=== PATIENT | male | born 1965 | race Caucasian/White ===

== ENCOUNTER 2023-10-09 18:40 | Inpatient (IN) ==
--- NOTE | 2023-10-09 19:03 | Emergency Department Note ---
Impression & Plan Acute UTI ADMIT ED Provider Note HPI: History obtained from patient. The patient is a 57-year-old gentleman who presents emergency department with a chief complaint of lower back pain, fever, and continued urinary frequency. Patient states he was diagnosed with a urinary tract infection on Saturday, he states he was placed on Macrobid without much improvement in his symptoms. Patient states he has had fevers at home over the past 3 days and also continues with some urinary frequency and mild dysuria. Patient denies any nausea or vomiting, states he has a mild headache. Patient denies any cough. Patient states he does have some pain in his lower back bilaterally. On arrival here to the ED the patient is mildly tachycardic, he is afebrile on arrival and saturating well on room air. ROS: - Per HPI Differential Diagnosis: Urinary tract infection, sepsis, adverse reaction to medication, viral upper respiratory infection to include COVID-19, influenza A, pneumonia, amongst other potential pathologies. *Outpatient medications and allergy history reviewed. 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 Lab work shows a leukocytosis of 13.12, platelet count is normal, hemoglobin is normal, CMP shows hypokalemia 2.9 which was ordered for oral repletion. There is no evidence of acute kidney injury, lactic acid is within normal limits, procalcitonin is low. Urinalysis does show evidence of infection, 1+ ketones, urine nitrite is positive and urine leukocyte esterase is 2+. There is significant pyuria. Viral panel testing is negative. I do not see any focal infiltrate on chest x-ray. CT imaging of the abdomen pelvis was obtained with IV contrast as the patient also complained of some lower back pain with his intermittent fevers and evidence of urinary tract infection. CT imaging shows some evidence of locules of air within the urinary bladder consistent with possibly cystitis with possible gas-forming infection. Patient denies having any recent catheterizations or instrumentation done. Given the above findings, I do feel the patient would benefit from admission for administration of IV antibiotics for urinary tract infection. His temperature did spike to 37.9 Celsius here in the ED. I do of concern for possible systemic infection and they do think the patient would benefit from admission to follow- up on urine culture and blood culture. I discussed the patient's presentation with the on-call hospitalist, Dr. Howe, and the patient was placed for admission in stable condition. Consultants/Discussions held with other healthcare providers: -Hospitalist, Dr. Howe Disposition discussion held by myself with: -Patient and at bedside Diagnosis: 1. Urinary tract infection with cystitis, acute 2. Leukocytosis, acute 3. Hypokalemia, acute 4. Fever by history Disposition: Admission Devin Phelps DO Emergency Medicine Past Med/Surg History Problem List (Updated 10/09/23 @ 22:11 by Devin Phelps DO) Acute UTI (Acute) Medical History (Updated 10/09/23 @ 22:11 by Dvein Phelps DO) Chest pain Social History Smoking Status: Current every day smoker Tobacco Type: Smokeless Tobacco (Dip or Chew) Preferred Language: Bruneian Feels Safe at Home: Yes Allergies Allergies Allergy/AdvReac Type Severity Reaction Status Date / Time No Known Allergies Allergy Verified 10/09/23 21:05 Home Meds Home Medications Medication Instructions Recorded Confirmed cholecalciferol (vitamin D3) 50 2,000 unit PO QAM 12/12/18 10/09/23 mcg (2,000 unit) tablet (Vitamin D3) hydrochlorothiazide 25 mg tablet 25 mg PO DAILY 12/12/18 10/09/23 losartan 50 mg tablet 50 mg PO QAM 12/12/18 10/09/23 potassium chloride 20 mEq 20 meq PO QAM 12/12/18 10/09/23 tablet,extended release(part/cryst) acetaminophen 325 mg tablet 650 mg PO DIRECTED PRN 10/09/23 10/09/23 (Tylenol) PAIN/FEVER nitrofurantoin 100 mg PO BID 10/09/23 10/09/23 monohydrate/macrocrystals 100 mg capsule Previous Rx's Medication Instructions Recorded spirometers and accessories #1 ea 12/12/18 Results & Data (ED) Vital Signs Vital Signs - 24 hr 10/09/23 18:47 10/09/23 19:36 10/09/23 19:36 Temperature 37.1 C Temperature Source Temporal Artery Scan Pulse Rate 107 H 91 H Pulse Rate [Apical] Respiratory Rate 18 17 Blood Pressure 158/95 H Blood Pressure [Left Arm] Blood Pressure Mean 116 Blood Pressure Mean [Left Arm] Pulse Oximetry 94 94 Oxygen Delivery Method Room Air Room Air Room Air Sepsis New/Unexplained Change in Mental Status No Sepsis Action Taken by Nursing No Action Required 10/09/23 19:36 10/09/23 19:39 10/09/23 19:49 Temperature 37.9 C H Temperature Source Oral Pulse Rate 90 Pulse Rate [Apical] 91 H 86 Respiratory Rate 17 11 L Blood Pressure Blood Pressure [Left Arm] 141/93 H 144/90 H Blood Pressure Mean Blood Pressure Mean [Left Arm] 109 108 Pulse Oximetry 94 94 Oxygen Delivery Method Room Air Sepsis New/Unexplained Change in Mental Status Sepsis Action Taken by Nursing 10/09/23 20:45 10/09/23 21:45 10/09/23 22:00 Temperature Temperature Source Pulse Rate Pulse Rate [Apical] 83 81 80 Respiratory Rate 16 Blood Pressure Blood Pressure [Left Arm] 139/91 149/96 H 135/96 Blood Pressure Mean Blood Pressure Mean [Left Arm] 107 113 109 Pulse Oximetry 95 96 96 Oxygen Delivery Method Room Air Room Air Room Air Sepsis New/Unexplained Change in Mental Status Sepsis Action Taken by Nursing Laboratory Data 10/09/23 19:27 10/09/23 19:27 Lab Results 10/09/23 10/09/23 10/09/23 Range/Units 19:20 19:27 20:44 WBC 13.12 H (4.8-10.8) K/ul RBC 4.76 (4.70-6.10) M/uL Hgb 14.8 (14.0-18.0) g/dl Hct 40.8 L (42.0-52.0) % MCV 85.7 (80.0-100.0) fL MCH 31.1 (25.0-34.0) pg MCHC 36.3 H (32.0-36.0) g/dL RDW Std Deviation 41.1 (36.4-46.3) fL RDW Coeff of Janeth 13.0 (11.5-14.5) % Plt Count 257 (130-400) K/uL MPV 8.7 L (9.4-12.4) fL Immature Gran % (Auto) 0.2 % Neut % (Auto) 78.5 % Lymph % (Auto) 8.5 % [place] % (Auto) 10.3 % Eos % (Auto) 2.1 % Baso % (Auto) 0.4 % Neut # (Auto) 10.30 H (1.40-6.50) K/uL Lymph # (Auto) 1.12 L (1.20-3.40) K/uL [place] # (Auto) 1.35 H (0.11-0.59) K/uL Eos # (Auto) 0.27 (0.00-0.50) K/uL Baso # (Auto) 0.05 (0.00-0.20) K/uL Immature Gran # (Auto) 0.03 (0.01-0.20) K/uL PT 10.7 (9.0-12.0) Seconds INR 1.0 (0.9-1.1) Sodium 136 (136-145) mmol/L Potassium 2.9 L (3.5-5.1) mmol/L Chloride 98 (98-107) mmol/L Carbon Dioxide 28 (21-32) mmol/L Anion Gap 10 (3-11) BUN 15 (6-23) mg/dl Creatinine 1.13 (0.6-1.4) mg/dl Est Cr Clr Drug Dosing 86.6 ml/min Est GFR ( Amer) 82.0 ml/min Est GFR (Non-Af Amer) 70.8 ml/min BUN/Creatinine Ratio 13.3 (10-20) Glucose 123 H (70-99(Fasting)) mg/dl Lactate 1.2 (0.4-2.0) mmol/L Calcium 10.0 (8.6-10.3) mg/dl Magnesium 2.1 (1.7-2.4) mg/dl Total Bilirubin 1.0 (0.2-1.0) mg/dl Direct Bilirubin 0.2 (0-0.2) mg/dl AST 27 (13-39) U/L ALT 34 (7-52) U/L Alkaline Phosphatase 90 (34-104) U/L Total Protein 8.2 (6.0-8.3) gm/dl Albumin 4.5 (3.4-5.0) gm/dl Procalcitonin 0.25 (0-0.5) ng/ml Urine Color Dark Yellow Urine Appearance Turbid A (Clear) Urine pH 7.0 (4.5-7.5) Ur Specific [place] 1.035 H (1.000-1.030) Urine Protein 2+ H (Negative) Urine Glucose (UA) Negative (Negative) Urine Ketones 1+ H (Negative) Urine Blood Trace H (Negative) Urine Nitrite Positive A (Negative) Urine Bilirubin Negative (Negative) Urine Urobilinogen Negative (Negative) Ur Leukocyte Esterase 2+ H (Negative) Urine WBC (Auto) >50 H (0-5) /hpf Urine RBC (Auto) 0-2 (0-2) /hpf U Hyaline Cast (Auto) 3-5 H (0-2) /lpf U Epithel Cells (Auto) 0-2 (0-2) /hpf Urine Bacteria (Auto) 4+ H (None Seen) Urine Yeast Present A (None Prsent) Adenovirus (PCR) Not Detected (NotDetected) B. pertussis DNA (PCR) Not Detected (NotDetected) B.parapertussis DNA PCR Not Detected (NotDetected) C. pneumoniae DNA (PCR) Not Detected (NotDetected) Coronavirus OC43 (PCR) Not Detected (NotDetected) Coronavirus HKU1 (PCR) Not Detected (NotDetected) Coronavirus 229E (PCR) Not Detected (NotDetected) SARS-CoV-2 (PCR) Not Detected (NotDetected) Coronavirus NL63 (PCR) Not Detected (NotDetected) Human Metapneumovir PCR Not Detected (NotDetected) Influenza Type A (PCR) Not Detected (NotDetected) Influenza Type B (PCR) Not Detected (NotDetected) M. pneumoniae (PCR) Not Detected (NotDetected) Parainfluenza 1 (PCR) Not Detected (NotDetected) Parainfluenza 2 (PCR) Not Detected (NotDetected) Parainfluenza 3 (PCR) Not Detected (NotDetected) Parainfluenza 4 (PCR) Not Detected (NotDetected) RSV (PCR) Not Detected (NotDetected) Entero/Rhino (PCR) Not Detected (NotDetected) Administered Medications Discontinued Medications Sodium Chloride (Nss) 1,000 mls @ 999 mls/hr IV .Q1H1M ONE Stop: 10/09/23 21:22 Last Admin: 10/09/23 20:42 Dose: 999 mls/hr Documented By: AWILDA Ceftriaxone Sodium (Rocephin) 2,000 mg in 50 mls @ 100 mls/hr IV NOW STA Stop: 10/09/23 21:42 Last Admin: 10/09/23 21:42 Dose: 100 mls/hr Documented By: AWILDA Ioversol (Optiray 320 100ml) 92 ml IV ONCE ONE Stop: 10/09/23 21:29 Last Admin: 10/09/23 21:29 Dose: 92 ml Documented By: BERTHA Potassium Chloride (Potassium Chloride Pwd 20 Meq Pack) 40 meq PO NOW STA Stop: 10/09/23 20:44 Last Admin: 10/09/23 20:52 Dose: 40 meq Documented By: AWILDA Imaging Data Radiologist's Impression: Abdomen/Pelvis CT 10/09/23 19:01 Exam(s): CT ABDOMEN + PELVIS With Contrast IV Amt: 92 ml optiray 320 EXAM: CT Abdomen and Pelvis With Intravenous Contrast CLINICAL HISTORY: Reason for exam: back pain, fever, recent uti. TECHNIQUE: Axial computed tomography images of the abdomen and pelvis with intravenous contrast. CTDI is 26.86 mGy and DLP is 1404.4 mGy-cm. Automated exposure control was utilized for the study. A dose lowering technique was utilized adhering to the principles of ALARA. CONTRAST: Patient received 92 ml optiray 320 of IV contrast COMPARISON: 12/12/2018 FINDINGS: Lung bases: Unremarkable. No mass. No consolidation. ABDOMEN: Liver: Fatty infiltration of the liver. Gallbladder and bile ducts: Unremarkable. No calcified stones. No ductal dilation. Pancreas: Unremarkable. No mass. No ductal dilation. Spleen: Unremarkable. No splenomegaly. Adrenals: Unremarkable. No mass. Kidneys and ureters: 2.9 cm right lower pole renal hypodensity likely representing a cyst. No hydronephrosis. Stomach and bowel: Unremarkable. No obstruction. No mucosal thickening. PELVIS: Appendix: No findings to suggest acute appendicitis. Bladder: Urinary bladder is not distended. There are tiny locules of air seen within the urinary bladder. Reproductive: Unremarkable as visualized. ABDOMEN and PELVIS: Intraperitoneal space: Unremarkable. No free air. No significant fluid collection. Bones/joints: No acute fracture. No dislocation. Soft tissues: Unremarkable. Vasculature: Unremarkable. No abdominal aortic aneurysm. Lymph nodes: Unremarkable. No enlarged lymph nodes. IMPRESSION: Tiny locules of air seen within the urinary bladder. This may be secondary to recent instrumentation, cystitis with a gas-forming organism though considered less likely, cannot be entirely excluded. Clinical correlation is recommended Electronically signed by: Av Fernandez MD 10/09/23 21:56 PM Discharge Plan Visit Data Chief Complaint: Allergic Reaction Stated Complaint: POSSIBLE ALLERGY TO MED, FEVER, DIZZY, NAUSEA ED Provider: Devin Phelps Discharge Problem: Acute UTI Forms Stand Alone Forms: [facility] Prescriptions Prescriptions: No Action losartan 50 mg tablet 50 mg PO QAM potassium chloride 20 mEq tablet,ER particles/crystals 20 meq PO QAM hydrochlorothiazide 25 mg tablet 25 mg PO DAILY cholecalciferol (vitamin D3) [Vitamin D3] 2,000 unit Tablet 2,000 unit PO QAM (DME) spirometers and accessories device See Dose Instructions .ROUTE .MEDSUPPLY Qty: 1 0RF Dose Instruction: As directed Rx Instructions: As directed acetaminophen [Tylenol] 325 mg Tablet 650 mg PO DIRECTED PRN (Reason: PAIN/FEVER) nitrofurantoin monohyd/m-cryst 100 mg capsule 100 mg PO BID Rx Instructions: STARTED 10/07/23 FOR 7 DAYS Referrals Referrals: Devin Toscano MD [Primary Care Provider] -
[2023-10-09 19:56] LABS: Basophils # (auto) 0.05 K/uL (0.00-0.20); Basophils % (auto) 0.4 %; Eosinophils # (auto) 0.27 K/uL (0.00-0.50); Eosinophils % (auto) 2.1 %; Hematocrit (blood only) 40.8 % (42.0-52.0); Hemoglobin 14.8 g/dl (14.0-18.0); Immature Granulocytes # (auto) 0.03 K/uL (0.01-0.20); Immature Granulocytes % (auto) 0.2 %; Lymphocytes # (auto) 1.12 K/uL (1.20-3.40); Lymphocytes % (auto) 8.5 %; Mean Corpuscular Hemoglobin 31.1 pg (25.0-34.0); Mean Corpuscular Hgb Conc 36.3 g/dL (32.0-36.0); Mean Corpuscular Volume 85.7 fL (80.0-100.0); Mean Platelet Volume 8.7 fL (9.4-12.4); Monocytes # (auto) 1.35 K/uL (0.11-0.59); Monocytes % (auto) 10.3 %; Neutrophils % (auto) 78.5 %; Platelet Count 257 K/uL (130-400); RDW Standard Deviation 41.1 fL (36.4-46.3); Red Blood Count 4.76 M/uL (4.70-6.10); White Blood Count 13.12 K/ul (4.8-10.8)
[2023-10-09 20:09] LABS: Albumin Level 4.5 gm/dl (3.4-5.0); BUN Creatinine Ratio 13.3 (10-20); Bilirubin Direct 0.2 mg/dl (0-0.2); Creatinine Clr Calc Pharmacy 86.6 ml/min; Est GFR (Non-African American) 70.8 ml/min; Magnesium 2.1 mg/dl (1.7-2.4); Potassium 2.9 mmol/L (3.5-5.1); Total Protein 8.2 gm/dl (6.0-8.3)
[2023-10-09 20:20] LABS: Prothrombin Time 10.7 Seconds (9.0-12.0)
[2023-10-09 20:42] LABS: Adenovirus PCR Not Detected (NotDetected); Bordetella parapertussis PCR Not Detected (NotDetected); Bordetella pertussis PCR Not Detected (NotDetected); Chlamydia pneumoniae PCR Not Detected (NotDetected); Coronavirus 229E PCR Not Detected (NotDetected); Coronavirus CoV-2 (COVID19)PCR Not Detected (NotDetected); Coronavirus HKU1 PCR Not Detected (NotDetected); Coronavirus NL63 PCR Not Detected (NotDetected); Coronavirus OC43PCR Not Detected (NotDetected); Human Metapneumovirus PCR Not Detected (NotDetected); Influenza A PCR Not Detected (NotDetected); Influenza B PCR Not Detected (NotDetected); Mycoplasma pneumoniae PCR Not Detected (NotDetected); Parainfluenza Virus 1 PCR Not Detected (NotDetected); Parainfluenza Virus 2 PCR Not Detected (NotDetected); Parainfluenza Virus 3 PCR Not Detected (NotDetected); Parainfluenza Virus 4 PCR Not Detected (NotDetected); Respiratory Syncytial VirusPCR Not Detected (NotDetected); Rhinovirus/Enterovirus PCR Not Detected (NotDetected)
[2023-10-09] MEDS: SODIUM CHLORIDE 0.9% 1,000 ML IV ONE ×2 (20:42→23:10)
[2023-10-09] MEDS: POTASSIUM CHLORIDE PWD 20 MEQ PACK PO STA (20:52)
[2023-10-09 21:10] LABS: Appearance Urine Turbid (Clear); Bacteria Urine Automated 4+ (None Seen); Bilirubin Urine Negative (Negative); Blood Urine Trace (Negative); Color Urine Dark Yellow; Epithelial Cell Urine Auto 0-2 /hpf (0-2); Glucose Urine UA Negative (Negative); Ketones Urine 1+ (Negative); Leukocyte Esterase Urine 2+ (Negative); Nitrite Urine Positive (Negative); Protein Urine 2+ (Negative); RBC Urine Automated 0-2 /hpf (0-2); Specific Gravity Urine 1.035 (1.000-1.030); Urobilinogen Urine Negative (Negative); WBC Urine Automated >50 /hpf (0-5)
[2023-10-09] MEDS: OPTIRAY 320 100ml IV ONE (21:29)
[2023-10-09] MEDS: cefTRIAXone SODIUM 2,000 MG/50 ML BAG IV STA (21:42)
--- NOTE | 2023-10-09 21:57 | CT Scan Report ---
Exam(s): CT ABDOMEN + PELVIS With Contrast IV Amt: 92 ml optiray 320 EXAM: CT Abdomen and Pelvis With Intravenous Contrast CLINICAL HISTORY: Reason for exam: back pain, fever, recent uti. TECHNIQUE: Axial computed tomography images of the abdomen and pelvis with intravenous contrast. CTDI is 26.86 mGy and DLP is 1404.4 mGy-cm. Automated exposure control was utilized for the study. A dose lowering technique was utilized adhering to the principles of ALARA. CONTRAST: Patient received 92 ml optiray 320 of IV contrast COMPARISON: 12/12/2018 FINDINGS: Lung bases: Unremarkable. No mass. No consolidation. ABDOMEN: Liver: Fatty infiltration of the liver. Gallbladder and bile ducts: Unremarkable. No calcified stones. No ductal dilation. Pancreas: Unremarkable. No mass. No ductal dilation. Spleen: Unremarkable. No splenomegaly. Adrenals: Unremarkable. No mass. Kidneys and ureters: 2.9 cm right lower pole renal hypodensity likely representing a cyst. No hydronephrosis. Stomach and bowel: Unremarkable. No obstruction. No mucosal thickening. PELVIS: Appendix: No findings to suggest acute appendicitis. Bladder: Urinary bladder is not distended. There are tiny locules of air seen within the urinary bladder. Reproductive: Unremarkable as visualized. ABDOMEN and PELVIS: Intraperitoneal space: Unremarkable. No free air. No significant fluid collection. Bones/joints: No acute fracture. No dislocation. Soft tissues: Unremarkable. Vasculature: Unremarkable. No abdominal aortic aneurysm. Lymph nodes: Unremarkable. No enlarged lymph nodes. IMPRESSION: Tiny locules of air seen within the urinary bladder. This may be secondary to recent instrumentation, cystitis with a gas-forming organism though considered less likely, cannot be entirely excluded. Clinical correlation is recommended Electronically signed by: Av Fernandez MD 10/09/23 21:56 PM
--- NOTE | 2023-10-09 22:35 | History & Physical Report ---
Date of Service October 09, 2023 Assessment & Plan (1) Sepsis: Plan: Complicated UTI Failed outpatient treatment hypertension, stable hypokalemia secondary to home diuretic Rx RCCA left status post surgery/prostate cancer as per records, patient follows with [facility] [place]rologist Hyperglycemia rule out DM Admit to medical telemetry CS, Zosyn Replace potassium, IVF Hold home diuretic for now until patient euvolemic Check hemoglobin A1c DVT prophylaxis. Lovenox subcu Full code Text document was generated using [employer] voice recognition software. It may contain grammatical or spelling errors. Kindly contact undersigned for clarification of any documentation item in question. History of Present Illness Chief Complaint: UTI Primary Care Provider: Devin Toscano MD History obtained from patient, family, and records. Medical history significant for hypertension, RCCA left status post surgery, prostate cancer, JOEY on CPAP, mood disorder. 3 days ago, patient noted achy low back pain associated with fever and urinary urgency. No hematuria, no chest pain, no SOB. UTI/hematuria symptoms from 3 months ago improved with Bactrim Rx. Outpatient urine CS from 3 months ago no growth. Patient seen at urgent care center few days ago. Patient given Macrodantin Rx. Worsening symptoms despite compliance with prescription. Ceftriaxone administered at the ER. 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 Allergies Allergy/AdvReac Type Severity Reaction Status Date / Time No Known Allergies Allergy Verified 10/09/23 21:05 Home Medications Medication Instructions Recorded Confirmed Type cholecalciferol (vitamin D3) 50 2,000 unit PO QAM 12/12/18 10/09/23 History mcg (2,000 unit) tablet (Vitamin D3) hydrochlorothiazide 25 mg tablet 25 mg PO DAILY 12/12/18 10/09/23 History losartan 50 mg tablet 50 mg PO QAM 12/12/18 10/09/23 History potassium chloride 20 mEq 20 meq PO QAM 12/12/18 10/09/23 History tablet,extended release(part/cryst) spirometers and accessories #1 ea 12/12/18 Rx acetaminophen 325 mg tablet 650 mg PO DIRECTED PRN 10/09/23 10/09/23 History (Tylenol) PAIN/FEVER nitrofurantoin 100 mg PO BID 10/09/23 10/09/23 History monohydrate/macrocrystals 100 mg capsule Past Med/Surg History Problem List (Updated 10/10/23 @ 01:26 by Background Mickie) Sepsis Acute UTI (Acute) Medical History (Updated 10/10/23 @ 01:26 by Background Daemon) Chest pain Social History Smoking Status: Never smoker Tobacco Type: Smokeless Tobacco (Dip or Chew) Second Hand Exposure: No; Hx Alcohol Use: No Hx Substance Use: No Preferred Language: Serbian Communication Ability: Effective Registration Coordinator Required: No Beliefs That Will Affect Care: None Current Living Situation: Spouse Current Living Situation Comment: lives with Feels Safe at Home: Yes Assistive Devices: None and CPAP Review of Systems Review of Systems: As per HPI, all other systems reviewed and negative Physical Exam Physical Exam: GENERAL: Comfortable, pleasant, obese, no respiratory distress SKIN: Normal color, warm HEENT: [place] palpebral conjunctivae, no ptosis, dry buccal mucosa NECK : Supple, no tenderness CHEST : CTA, no tenderness HEART : RRR, no obvious murmurs ABDOMEN: Some distention, minimal hypogastric tenderness EXTREMITIES : No LE swelling/tenderness, no other conspicuous deformities noted NEUROLOGIC : Coherent, no facial asymmetry, no other gross focality Results & Data Results & Data Vital Signs (Past 12 Hours) Vital Signs Temp Pulse Pulse Resp BP BP Pulse Ox 10/09/23 22:00 80 24 135/96 96 10/09/23 21:45 81 24 149/96 H 96 10/09/23 20:45 83 16 139/91 95 10/09/23 19:49 86 11 L 144/90 H 94 10/09/23 19:39 90 10/09/23 19:36 37.9 C H 91 H 17 141/93 H 94 10/09/23 19:36 91 H 17 94 10/09/23 19:36 10/09/23 18:47 37.1 C 107 H 18 158/95 H 94 O2 Del Method 10/09/23 22:00 Room Air 10/09/23 21:45 Room Air 10/09/23 20:45 Room Air 10/09/23 19:49 Room Air 10/09/23 19:39 10/09/23 19:36 10/09/23 19:36 Room Air 10/09/23 19:36 Room Air 10/09/23 18:47 Room Air Laboratory Results Laboratory Results WBC 13.12 K/ul (4.8-10.8) H 10/09/23 19: RBC 4.76 M/uL (4.70-6.10) 10/09/23 19:27 Hgb 14.8 g/dl (14.0-18.0) 10/09/23 19: Hct 40.8 % (42.0-52.0) L 10/09/23 19: MCV 85.7 fL (80.0-100.0) 10/09/23 19: MCH 31.1 pg (25.0-34.0) 10/09/23 19: MCHC 36.3 g/dL (32.0-36.0) H 10/09/23 19: RDW Std Deviation 41.1 fL (36.4-46.3) 10/09/23: RDW Coeff of Janeth 13.0 % (11.5-14.5) 10/09/23 19: Plt Count 257 K/uL (130-400) 10/09/23 19: MPV 8.7 fL (9.4-12.4) L 10/09/23: Immature Gran % (Auto) 0.2 % 10/09/23: Neut % (Auto) 78.5 % 10/09/23 19: Lymph % (Auto) 8.5 % 10/09/23: [place] % (Auto) 10.3 % 10/09/23 19:27 Eos % (Auto) 2.1 % 10/09/23 19:27 Baso % (Auto) 0.4 % 10/09/23: Neut # (Auto) 10.30 K/uL (1.40-6.50) H 10/09/23 19: Lymph # (Auto) 1.12 K/uL (1.20-3.40) L 10/09/23 19:27 [place] # (Auto) 1.35 K/uL (0.11-0.59) H 10/09/23 19:27 Eos # (Auto) 0.27 K/uL (0.00-0.50) 10/09/23 19:27 Baso # (Auto) 0.05 K/uL (0.00-0.20) 10/09/23 19:27 Immature Gran # (Auto) 0.03 K/uL (0.01-0.20) 10/09/23 19:27 PT 10.7 Seconds (9.0-12.0) 10/09/23 19:27 INR 1.0 (0.9-1.1) 10/09/23 19:27 Sodium 136 mmol/L (136-145) 10/09/23 19:27 Potassium 2.9 mmol/L (3.5-5.1) L 10/09/23 19:27 Chloride 98 mmol/L (98-107) 10/09/23 19:27 Carbon Dioxide 28 mmol/L (21-32) 10/09/23 19:27 Anion Gap 10 (3-11) 10/09/23 19:27 BUN 15 mg/dl (6-23) 10/09/23 19:27 Creatinine 1.13 mg/dl (0.6-1.4) 10/09/23 19:27 Est Cr Clr Drug Dosing 86.6 ml/min 10/09/23 19:27 Est GFR ( Amer) 82.0 ml/min 10/09/23 19:27 Est GFR (Non-Af Amer) 70.8 ml/min 10/09/23 19:27 BUN/Creatinine Ratio 13.3 (10-20) 10/09/23 19:27 Glucose 123 mg/dl (70-99(Fasting)) H 10/09/23 19:27 Lactate 1.2 mmol/L (0.4-2.0) 10/09/23 19:27 Calcium 10.0 mg/dl (8.6-10.3) 10/09/23 19:27 Magnesium 2.1 mg/dl (1.7-2.4) 10/09/23 19:27 Total Bilirubin 1.0 mg/dl (0.2-1.0) 10/09/23 19:27 Direct Bilirubin 0.2 mg/dl (0-0.2) 10/09/23 19:27 AST 27 U/L (13-39) 10/09/23 19:27 ALT 34 U/L (7-52) 10/09/23 19: Alkaline Phosphatase 90 U/L (34-104) 10/09/23 19: Total Protein 8.2 gm/dl (6.0-8.3) 10/09/23 19: Albumin 4.5 gm/dl (3.4-5.0) 10/09/23 19: Procalcitonin 0.25 ng/ml (0-0.5) 10/09/23 19: Urine Color Dark Yellow 10/09/23 20:44 Urine Appearance Turbid (Clear) A 10/09/23 20:44 Urine pH 7.0 (4.5-7.5) 10/09/23 20:44 Ur Specific [place] 1.035 (1.000-1.030) H 10/09/23 20:44 Urine Protein 2+ (Negative) H 10/09/23 20:44 Urine Glucose (UA) Negative (Negative) 10/09/23 20:44 Urine Ketones 1+ (Negative) H 10/09/23 20:44 Urine Blood Trace (Negative) H 10/09/23 20:44 Urine Nitrite Positive (Negative) A 10/09/23 20:44 Urine Bilirubin Negative (Negative) 10/09/23 20:44 Urine Urobilinogen Negative (Negative) 10/09/23 20:44 Ur Leukocyte Esterase 2+ (Negative) H 10/09/23 20:44 Urine WBC (Auto) >50 /hpf (0-5) H 10/09/23 20:44 Urine RBC (Auto) 0-2 /hpf (0-2) 10/09/23 20:44 U Hyaline Cast (Auto) 3-5 /lpf (0-2) H 10/09/23 20:44 U Epithel Cells (Auto) 0-2 /hpf (0-2) 10/09/23 20:44 Urine Bacteria (Auto) 4+ (None Seen) H 10/09/23 20:44 Urine Yeast Present (None Prsent) A 10/09/23 20:44 Adenovirus (PCR) Not Detected (NotDetected) 10/09/23 19:20 B. pertussis DNA (PCR) Not Detected (NotDetected) 10/09/23 19:20 B.parapertussis DNA PCR Not Detected (NotDetected) 10/09/23 19:20 C. pneumoniae DNA (PCR) Not Detected (NotDetected) 10/09/23 19:20 Coronavirus OC43 (PCR) Not Detected (NotDetected) 10/09/23 19:20 Coronavirus HKU1 (PCR) Not Detected (NotDetected) 10/09/23 19:20 Coronavirus 229E (PCR) Not Detected (NotDetected) 10/09/23 19:20 SARS-CoV-2 (PCR) Not Detected (NotDetected) 10/09/23 19:20 Coronavirus NL63 (PCR) Not Detected (NotDetected) 10/09/23 19:20 Human Metapneumovir PCR Not Detected (NotDetected) 10/09/23 19:20 Influenza Type A (PCR) Not Detected (NotDetected) 10/09/23 19:20 Influenza Type B (PCR) Not Detected (NotDetected) 10/09/23 19:20 M. pneumoniae (PCR) Not Detected (NotDetected) 10/09/23 19:20 Parainfluenza 1 (PCR) Not Detected (NotDetected) 10/09/23 19:20 Parainfluenza 2 (PCR) Not Detected (NotDetected) 10/09/23 19:20 Parainfluenza 3 (PCR) Not Detected (NotDetected) 10/09/23 19:20 Parainfluenza 4 (PCR) Not Detected (NotDetected) 10/09/23 19:20 RSV (PCR) Not Detected (NotDetected) 10/09/23 19:20 Entero/Rhino (PCR) Not Detected (NotDetected) 10/09/23 19:20 Impressions Abdomen/Pelvis CT 10/09/23 19:01 Exam(s): CT ABDOMEN + PELVIS With Contrast IV Amt: 92 ml optiray 320 EXAM: CT Abdomen and Pelvis With Intravenous Contrast CLINICAL HISTORY: Reason for exam: back pain, fever, recent uti. TECHNIQUE: Axial computed tomography images of the abdomen and pelvis with intravenous contrast. CTDI is 26.86 mGy and DLP is 1404.4 mGy-cm. Automated exposure control was utilized for the study. A dose lowering technique was utilized adhering to the principles of ALARA. CONTRAST: Patient received 92 ml optiray 320 of IV contrast COMPARISON: 12/12/2018 FINDINGS: Lung bases: Unremarkable. No mass. No consolidation. ABDOMEN: Liver: Fatty infiltration of the liver. Gallbladder and bile ducts: Unremarkable. No calcified stones. No ductal dilation. Pancreas: Unremarkable. No mass. No ductal dilation. Spleen: Unremarkable. No splenomegaly. Adrenals: Unremarkable. No mass. Kidneys and ureters: 2.9 cm right lower pole renal hypodensity likely representing a cyst. No hydronephrosis. Stomach and bowel: Unremarkable. No obstruction. No mucosal thickening. PELVIS: Appendix: No findings to suggest acute appendicitis. Bladder: Urinary bladder is not distended. There are tiny locules of air seen within the urinary bladder. Reproductive: Unremarkable as visualized. ABDOMEN and PELVIS: Intraperitoneal space: Unremarkable. No free air. No significant fluid collection. Bones/joints: No acute fracture. No dislocation. Soft tissues: Unremarkable. Vasculature: Unremarkable. No abdominal aortic aneurysm. Lymph nodes: Unremarkable. No enlarged lymph nodes. IMPRESSION: Tiny locules of air seen within the urinary bladder. This may be secondary to recent instrumentation, cystitis with a gas-forming organism though considered less likely, cannot be entirely excluded. Clinical correlation is recommended Electronically signed by: Av Fernandez MD 10/09/23 21:56 PM Diagnostic Findings EKG as per my interpretation : Rate 105, sinus tachycardia, normal axis, no ischemia
[2023-10-09] MEDS ORDERED: PROMETHAZINE HCL 12.5 MG in SODIUM CHLORIDE 0.9% 50 ML IV PRN (22:38)
[2023-10-09] MEDS ORDERED: oxyCODONE HCL IR 5 MG TAB (IMMEDIATE RELEASE) PO PRN (22:38)
[2023-10-09] MEDS: ACETAMINOPHEN 325 MG TAB PO STA (23:10)
[2023-10-09] MEDS: PIPERACILLIN/TAZOBACTAM 4.5 GM/100 ML BAG IV STA (23:11)
[2023-10-10] MEDS: NSS + 20MEQ KCL 20 MEQ/1,000 ML BAG IV STA (00:14)
--- OUTSIDE RECORDS SUMMARY | 2023-10-10 05:53 | External Medical Summary | Summary of Care ---
Author Name Unknown Organization [facility] Address [address] [place] [address] Phone [phone] Care Team Providers Care Senior Commissary Agent Name Role Phone Devin Toscano MD Primary Care Provider [phone] Reason for Visit * Reason Onset Date Comments Test Results 06/17/2023 Encounter Details Date Type Department Care Team (Late st Contact Info) Description 06/17/2023 Telephone [facility] [address] [place] [address] Devin Toscano MD [address] [place] [address] Test Results Allergies No known active allergiesdocumented as of this encounter (statuses as of 06/17/2023) Medications Medication Sig Dispensed Refills Start Date End Date Status VITAMIN D 1000 UNITS PO TABS 1 daily 0 Active Zoster Vac Recomb Adjuvanted 50 MCG/0.5ML Intramuscular Suspension Reconstituted (Shingrix)Indication s:Need for shingles vaccine Inject 0.5 mL into a large muscle now and repeat dose in 60 to 180 days 1 Each 1 07/19/2021 Active LORazepam 1 MG Oral Tablet (Ativan)Indications: Anxiety state 1 tab 45-60 minutes before procedure 3 Tablet 0 07/19/2021 Active Additional Information Patient not taking.Reported on 11/30/2022 HYDROcodone-Acetamin ophen 5-325 MG Oral Tablet Take 1 Tablet by mouth every 6 hours as needed for Pain, Severe. 12 Tablet 0 03/09/2022 Active Additional Information Patient not taking.Reported on 11/30/2022 Sildenafil Citrate 50 MG Oral Tablet Take 1 Tablet by mouth daily as needed for Erectile Dysfunction. 30 Tablet 3 04/02/2022 Active Ketoconazole 2 % External CreamIndications:Isidoro orrheic dermatitis Apply 2x daily to rash on face until resolved, then when flaring (or continue with daily as maintenance) 60 g 3 04/24/2022 Active Additional Information Patient not taking.Reported on 11/30/2022 Erythromycin 5 MG/GM Ophthalmic Ointment Apply a small amount of ointment to both upper eyelid incisions four times daily for two weeks, then at bedtime only for two weeks. 3.5 g 2 08/10/2022 Active Additional Information Patient not taking.Reported on 11/30/2022 Ketoconazole 2 % External Shampoo (Nizoral)Indications :Seborrheic dermatitis Massage into scalp, leave for 5-10 minutes, then rinse. Use 3x weekly then titrate down as maintenance. 120 mL 3 03/04/2023 Active hydroCHLOROthiazide 25 MG Oral Tablet (Hydrodiuril)Indicat ions:HTN, goal below 140/90 Take 1 Tablet by mouth in the morning. 90 Tablet 3 04/24/2023 Active Losartan Potassium 50 MG Oral Tablet (Cozaar)Indications: HTN, goal below 140/90 Take 1 Tablet by mouth in the morning. 90 Tablet 3 04/24/2023 Active Potassium Chloride Zora ER 20 MEQ Oral Tablet Extended ReleaseIndications:H ypokalemia Take 1 Tablet by mouth in the morning. 90 Tablet 3 04/24/2023 Active documented as of this encounter (statuses as of 06/17/2023) Active Problems Problem Noted Date Diagnosed Date Prostate cancer 04/24/2023 H/O dysplastic nevus 04/25/2021 Overview: Small atypical junctional melanocytic neoplasm (right posterior upper arm 05/09) Hx of actinic keratosis 06/16/2020 Overview: Efudex face 05/2020 Hx of nonmelanoma skin cancer 05/13/2019 Overview: basal cell carcinoma (R distal pretibial region 04/2019) Goiter 01/13/2019 Overview: Needs yearly TSH and U/S per ENT 01/13/19 Elevated prostate specific antigen (PSA) 019 Renal cell carcinoma of left kidney 12/10/2018 Overview: Found on pelvic/abdominal MRI for elevated PSA. Nodule of right lung 12/10/2018 Overview: Needle biopsy. [place]. Tobacco use 12/10/2018 Overview: Chews, half can daily. Thyroid nodule 12/10/2018 Overview: Being evaluated. Motion sickness 12/10/2018 Urgency of urination 02/03/2015 Major depressive disorder, single episode, moder ate 01/17/2015 JOEY (obstructive sleep apnea) 02/02/2013 Overview: Mild JOEY with mild Hypoxemia Vitamin D deficiency 11/13/2012 HTN, goal below 140/90 documented as of this encounter (statuses as of 06/17/2023) Resolved Problems Problem Noted Date Diagnosed Date Resolved Date Urinary frequency 02/03/2015 07/17/2019 Dysuria 02/03/2015 07/17/2019 documented as of this encounter (statuses as of 06/17/2023) Immunizations Name Administration Dates Next Due COVID-19 mRNA, LNP-s, No Pre serve, 2-Dose Series (Moderna) 08/13/2020,07/16/2020 COVID-19, mRNA, LNP-s, PF, B ooster, 100mcg/0.5mg (Moderna) 04/02/2021 Seasonal Influenza, PF, 6 M & above, IM , (FluLaval or Fluzone) 12/22/2022,12/02/2021,12/03/2020,2019 TDAP (age 10 and older)(Boostrix) 04/23/2022, TDAP (age 11 and older)(Adacel) 10/14/2009(Defer red: Patient Refused) Zoster Vaccine Recombinant (Shingrix) 09/22/2021 ,07/19/2021 documented as of this encounter Social History Tobacco Use Types Packs/Day Years Used Date Smoking Tobacco: Never Smokeless Tobacco: Current Snuff Comments:chew - 1 can every 2 - 2 1/2 days Alcohol Use Standard Drinks/Week Comments Yes 0 (1 standard drink = 0.6 oz pur e alcohol) 2-3 beers onc e per month PHQ-2 Answer Date Recorded PHQ Adult Total Score 0 07/19/2021 Hunger Vital Sign Answer Date Recorded Within the past 12 months, y ou worried that your food would run out before you got the money to buy more. Never true 07/18/19 23 Within the past 12 months, t he food you bought just didn't last and you didn't have money to get more. Never true 07/17/2022 Sex and Gender Information Value Date Recorded Sex Assigned at Male 07/14/2018 10:12 AM EDT Gender Identity Male 07/14/2018 10:12 AM EDT Sexual Orientation Straight 07/14/2018 10 :12 AM EDT Job Start Date Occupation Industry Not on file Not on file Not on file documented as of this encounter Functional Status Functional Status Response Date of Assess ment Are you deaf or do you have serious difficulty h earing? No 12/10/2018 Are you blind or do you have serious difficulty seeing, even when wearing glasses? No 12/10/2018 Do you have serious difficul ty walking or climbing stairs? (5 years old or older) No 12/10/2018 Do you have difficulty dress ing or bathing? (5 years old or older) No 12/10/2018 Because of a physical, menta l, or emotional condition, do you have difficulty doing errands alone such as visiting a doctor s office or shopping? (15 years old or older) No 12/11/19 19 Cognitive Status Response Date of Assessm ent Because of a physical, menta l, or emotional condition, do you have serious difficulty concentrating, remembering, or making decisions? (5 years old or older) No 12/10/2018 documented as of this encounter Miscellaneous Notes * Telephone Encounter - Marti Elizondo LPN - 06/17/2023 10:29 AM EDT Patient made aware via [employer] message * Telephone Encounter - Marti Elizondo LPN - 06/17/2023 10:27 AM EDT ----- Message from Devin Toscano MD sent at 06/08/2023 10:09 AM EDT ----- Recent EMG / nerve conduction tests were normal. This does not completely rule out a "neuropathy" but it makes it very unlikely. Would seem that the left arm symptoms may be more a tendonitis. Have symptoms improved? If no improvement, we could have you see sports medicine. documented in this encounter Plan of Treatment Upcoming Encounters Date Type Department Care Team (Latest Contact Info) Description 09/20/2023 10:30 AM EDT Imaging Radiology [address] [place] [address] 09/27/2023 11:15 AM EDT Hospital Encounter ENDO [facility], Endoscopy Room [facility] [address] [place] [phone] Alex Templeton MD [address] [place] [address] 09/27/2023 11:15 AM EDT - 09/27/2023 11:45 AM EDT Surgery ENDO [facility], Endoscopy Room [facility] [address] [place] [phone] Alex Templeton MD [address] [place] [address] COLONOSCOPY FLEXIBLE PROXIMAL DIAGNOSTIC 11/08/2023 9:00 AM EDT [facility] [place] [address] [address] [facility] [phone] [place], Laboratory [address] [facility], [place] [address] 11/15/2023 1:00 PM EDT Telemedicine Urology, [place] [address] [place] [address] Les Wong MD [address] [facility] [place] [address] 12/03/2023 11:20 AM EDT Office Visit [facility] [address] [place] [phone] Marcia Alejandre DO [address] [place] [address] 04/27/2024 9:20 AM EST Office Visit Family [facility] [address] [place] [phone] Devin Toscano MD [address] [place] [address] 11/12/2024 9:20 AM EDT [place] [address], [place] [phone] Maryam Solorzano, PACheryl [address] [place] [address] [place] [address] Scheduled Procedures Name Priority Associated Diagnoses Date/Ti me COLONOSCOPY FLEXIBLE PROXIMAL DIAGNOSTIC Recall History of colon polyps Screen for colon cancer 09/27/2023 11:15 AM EDT Health Maintenance Due Date Last Done Comments Hepatitis B (1 of 3 - 19+ 3-dose series) 10/26/1982 Depression Screening 07/19/2022 07/19/2021 COVID-19 Vaccine (2022- season) 2022 04/02/2021, 08/13/2020, 07/16/2020 COLONOSCOPY-EVERY 5 YRS AGES 18-100 09/04/2023 09/03/2018, 09/03/2018, 08/27/2016, Additional history exists Albumin/Creatinine Ratio 01/19/20242 021, 01/19/2020, 07/12/2017 GFR 04/17/2024 04/17/2023, 07, 01/12/2022, Additional history exists Diabetes Screening 04/17/2026 04/17/2023, 1 , 01/18/2021, Additional history exists Lipid Panel 04/26/2027 04/26/2022, 1105/2020, 01/19/2020, Additional history exists DTaP,Tdap,and Td Vaccines (3 - Td or Tdap) 04/23/2032 04/23/2022, 11/13/2012 Zoster Vaccines Completed 09/22/2021, 07/19/2021 Influenza Vaccine (FLU shot) Completed 09/2022, 12/02/2021, 12/03/2020, Additional history exists GARDASIL-HPV IMMUNIZATION SERIES Aged Out No longer eligible based on patient's age to complete this topic MENINGOCOCCAL (MENACTRA/MENVEO) Aged Out No longer eligible based on patient's age to complete this topic Pneumococcal Vaccine: Pediatrics (0 to 5 Years) and At-Risk Patients (6 to 64 Years) Aged Out No longer eligible based on patient's age to complete this topic documented as of this encounter Medical Devices Not on filedocumented as of this encounter Advance Directives Latest Code Status on File Code Status Date Activated Date Inactivated Comments Full Code 12/10/2018 12:16 PM 12/11/2018 9:01 PM Question Answer Comments Discussion of Advance Direct ariana occurred with: Not Discussed Care Teams Senior Commissary Agent Relationship Specialty Start Date End Date Devin Toscano MD [address] [place] [address] PCP - General 04/27/08 documented as of this encounter
--- OUTSIDE RECORDS SUMMARY | 2023-10-10 05:53 | External Medical Summary | Summary of Care ---
Author Name Unknown Organization [facility] Address [address] [place] [address] Phone [phone] Care Team Providers Care Electronic Video Games Servicer Name Role Phone Devin Toscano MD Primary Care Provider [phone] Reason for Visit * Reason Comments EKG Patient is here for a EKG Encounter Details Date Type Department Care Team (Late st Contact Info) Description 08/19/2023 11:00 AM EDT Nurse Only Ancillary Department, [place] [address] [place] [address] [place], Nurse [address] [place] [address] EKG (Patient is here for a EKG) Allergies No known active allergiesdocumented as of this encounter (statuses as of 08/19/2023) Medications Medication Sig Dispensed Refills Start Date End Date Status VITAMIN D 1000 UNITS PO TABS 1 daily Active Zoster Vac Recomb Adjuvanted 50 MCG/0.5ML Intramuscular Suspension Reconstituted (Shingrix)Indication s:Need for shingles vaccine Inject 0.5 mL into a large muscle now and repeat dose in 60 to 180 days 1 Each 1 07/19/2021 Active Additional Information Patient not taking.Reported on 07/09/2023 LORazepam 1 MG Oral Tablet (Ativan)Indications: Anxiety state 1 tab 45-60 minutes before procedure 3 Tablet 07/19/2021 Active Additional Information Patient not taking.Reported on 11/30/2022 HYDROcodone-Acetamin ophen 5-325 MG Oral Tablet Take 1 Tablet by mouth every 6 hours as needed for Pain, Severe. 12 Tablet 03/09/2022 Active Sildenafil Citrate 50 MG Oral Tablet Take 1 Tablet by mouth daily as needed for Erectile Dysfunction. 30 Tablet 3 04/02/2022 Active Ketoconazole 2 % External CreamIndications:Isidoro orrheic dermatitis Apply 2x daily to rash on face until resolved, then when flaring (or continue with daily as maintenance) 60 g 3 04/24/2022 Active Erythromycin 5 MG/GM Ophthalmic Ointment Apply a small amount of ointment to both upper eyelid incisions four times daily for two weeks, then at bedtime only for two weeks. 3.5 g 2 08/10/2022 Active Additional Information Patient not taking.Reported on 08/19/2023 Ketoconazole 2 % External Shampoo (Nizoral)Indications :Seborrheic [...] as of this encounter (statuses as of 08/19/2023) Active Problems Problem Noted Date Diagnosed Date [...] as of this encounter (statuses as of 08/19/2023) Resolved Problems Problem Noted Date Diagnosed Date Resolved Date Urinary frequency 02/03/2015 07/17/2019 Dysuria 02/03/2015 07/17/2019 documented as of this encounter (statuses as of 08/19/2023) Immunizations Name Administration Dates Next Due COVID-19 mRNA, LNP-s, No Pre serve, 2-Dose Series (Moderna) 08/13/2020,07/16/2020 COVID-19, mRNA, LNP-s, PF, B ooster, 100mcg/0.5mg (Moderna) 04/02/2021 Seasonal Influenza, PF, 6 M & above, IM , (FluLaval or Fluzone) 12/22/2022,12/02/2021,12/03/2020,2019 TDAP (age 10 and older)(Boostrix) 04/23/2022, TDAP, Age 7 and older, IM (Adacel) 10/14/2009([place]: Patient Refused) Zoster Vaccine Recombinant (Shingrix) 09/22/2021 [...] on file documented as of this encounter Last Filed Vital Signs Vital Sign Reading Time Taken Comments Blood Pressure 138/78 08/19/2023 11:01 AM EDT Pulse 95 08/19/2023 11:01 AM EDT Temperature - - Respiratory Rate - - Oxygen Saturation 96% 08/19/2023 11:01 AM EDT Inhaled Oxygen Concentration - - Weight - - Height - - Body Mass Index - - documented in this encounter Functional Status Functional Status Response [...] No 12/10/2018 documented as of this encounter Nursing Notes * Jaison Garza MED ASSIST - 08/19/2023 11:12 AM EDT The patient has been properly identified by confirmation of name and date of . Chief Complaint Patient presents with EKG Patient is here for a EKG ekg done as per 's order * Jaison Garza MED ASSIST - 08/19/2023 11:04 AM EDT The patient has been properly identified by confirmation of name and date of . ekg done as per 's order documented in this encounter Plan of Treatment Upcoming Encounters Date Type Department Care Team (Latest Contact Info) Description 09/20/2023 10:30 AM EDT Imaging Radiology [address] [place] [address] 09/27/2023 11:15 AM EDT Hospital Encounter ENDO OSSC, Endoscopy Room [facility] [address] [place] [phone] Alex Templeton MD [address] [place] [address] 09/27/2023 11:15 AM EDT - 09/27/2023 11:45 AM EDT Surgery ENDO OSSC, Endoscopy Room [facility] [address] [place] [phone] Alex Templeton MD [address] [place] [address] COLONOSCOPY FLEXIBLE PROXIMAL DIAGNOSTIC 11/08/2023 9:00 AM EDT Laboratory Laboratory, [address] [phone] [facility] [address] [place] [address] 11/15/2023 1:00 PM EDT Telemedicine Urology, [place] [address] [place] [address] Les Wong MD [address] [place], [place] [id number] 12/03/2023 11:20 AM EDT Office Visit Sleep Disorders Ctr [facility] [address] [place] [phone] Marcia Alejandre DO [address] [place] [address] 04/27/2024 9:20 AM EST [facility] [address] [place] [phone] Devin Toscano MD [address] [place] [address] 11/12/2024 9:20 AM EDT Office Visit Dermatology, [place] [address] [place] [address] Maryam Solorzano PA-C [address] [place] [address] [place] [address] Scheduled Procedures Name Priority Associated Diagnoses Date/Ti me COLONOSCOPY FLEXIBLE PROXIMAL DIAGNOSTIC Recall History of colon polyps Screen for colon cancer 09/27/2023 11:15 AM EDT Health Maintenance Due Date Last Done Comments Hepatitis B (1 of 3 - 19+ 3-dose series) 10/26/1982 Cologuard 10/26/2008 Fecal Occult Blood Test 10/26/2008 Sigmoidoscopy 10/26/2008 COVID-19 Vaccine ( season) 2022 04/02/2021, 08/13/2020, 07/16/2020 Colonoscopy 09/04/2023 09/03/2018, 08/16, 08/27/2016, Additional history exists Colorectal Cancer Screening 09/04/2023 Albumin/Creatinine Ratio 01/19/2024 021, 01/19/2020, 07/12/2017 GFR 04/17/2024 04/17/2023, 09/15, 01/12/2022, Additional history exists Diabetes Screening 04/17/2026 04/17/2023, 1 , 01/18/2021, Additional history exists Lipid Panel 04/26/2027 04/26/2022, 110 05/2020, 01/19/2020, Additional history exists DTaP,Tdap,and Td Vaccines (3 - Td or Tdap) 04/23/2032 04/23/2022, 11/13/2012 RETIRED - COLONOSCOPY-EVERY 5 YRS AGES 18-100 Discontinued 09/03/2018, 09/03/2018, 08/27/2016, Additional history exists Zoster Vaccines Completed 09/22/2021, 07/19/2021 Influenza Vaccine (FLU shot) Completed 12/22/2022, 12/02/2021, 12/03/2020, Additional history exists GARDASIL-HPV IMMUNIZATION [...] filedocumented as of this encounter Advance Directives * Full Code (Latest Code Status on File) Date Activated Date Inactivated Comments 12/10/2018 12:16 PM 12/11/2018 9:01 PM Question Answer Comments Discussion of Advance Directives occurred with: Not Discussed Care Teams Electronic Video Games Servicer Relationship Specialty Start Date End Date Devin Toscano MD [address] [place] [address] PCP - General 04/27/08 documented as of this encounter
--- OUTSIDE RECORDS SUMMARY | 2023-10-10 05:53 | External Medical Summary ---
Author Name Unknown Address Unknown Organization K01:[facility] [place] [address] [facility] [address] Laboratory Report Ordering Provider Test Date Status JOHN MARTINEZ 09/10/2023 10:09:12 Final Observation Date Value Abnormality Reference (Units ) Status MYCODE SPECIMEN-SST 09/10/2023 10:09:12 Freezing of extracted DNA, whole blood and/or serum. Final Performing Location [facility] [place] [facility] [address] [facility] [address]
--- OUTSIDE RECORDS SUMMARY | 2023-10-10 05:53 | External Medical Summary | Summary of Care ---
Author Name Unknown Organization [facility] Address [address] [place] [address] Phone [phone] Care Team Providers Care Bench Grinder Name Role Phone Devin Toscano MD Primary Care Provider Reason for Visit * Reason Onset Date Comments Test Results 06/17/2023 Encounter Details Date Type Department Care Team (Late st Contact Info) Description 06/17/2023 Telephone [facility] [address] [place] [address] Devin Toscano MD [address] [place] [address] Test Results Allergies No known [...] 10:29 AM EDT Patient made aware via [employer] message * Telephone Encounter - Marti Elizondo [...] Description 09/20/2023 10:30 AM EDT Imaging Radiology [address] [place] [address] 09/27/2023 11:15 AM EDT Hospital Encounter ENDO OSSC, Endoscopy Room [facility] [address] [place] [phone] Alex Templeton MD [address] [place] [address] 09/27/2023 11:15 AM EDT - 09/27/2023 11:45 AM EDT Surgery ENDO OSSC, Endoscopy Room [facility] [address] [place] [phone] Alex Templeton MD [address] [place] [address] COLONOSCOPY FLEXIBLE PROXIMAL DIAGNOSTIC 11/08/2023 9:00 AM EDT Laboratory Laboratory, [place] [address] [facility] [phone] [place], Laboratory [address] [facility], [place] [address] 11/15/2023 1:00 PM EDT Telemedicine Urology, [place] [address] [place] [address] Les Wong MD [address] [place] [facility] [place] [address] 12/03/2023 11:20 AM EDT Office Visit Sleep Disorders Ctr [facility] [address] [place] [phone] Marcia Alejandre DO [address] [place] [address] 04/27/2024 9:20 AM EST Office Visit Family [facility] [address] [place] [phone] Devin Toscano MD [address] [place] [address] 11/12/2024 9:20 AM EDT [place] [address], [place] [phone] Maryam Solorzano, PACheryl [address] [place] [address] [place] [address] Scheduled Procedures Name Priority Associated Diagnoses Date/Ti [...] ariana occurred with: Not Discussed Care Teams Bench Grinder Relationship Specialty Start Date End Date Devin Toscano MD [address] [place] [address] PCP - General 04/27/08 documented as of this encounter
--- OUTSIDE RECORDS SUMMARY | 2023-10-10 05:53 | External Medical Summary | Summary of Care ---
Author Name Unknown Organization [facility] Address [address] [place] [address] Phone [phone] Care Team Providers Care Editor Sound Name Role Phone Devin Toscano MD Primary Care Provider Reason for Visit * Reason Comments Outpatient Testing Encounter Details Date Type Department Care Team (Late st Contact Info) Description 09/10/2023 10:00 AM EDT Laboratory Laboratory, [place] [address] [place] [phone] [place], Laboratory [address] [place] [address] [place] Other*[id number]; Prostate cancer (HCC); Renal cell carcinoma of left kidney (HCC) Allergies No known active allergiesdocumented as of this encounter (statuses as of 09/10/2023) Medications Medication Sig Dispensed Refills Start Date [...] as of this encounter (statuses as of 09/10/2023) Active Problems Problem Noted Date Diagnosed Date [...] as of this encounter (statuses as of 09/10/2023) Resolved Problems Problem Noted Date Diagnosed Date Resolved Date Urinary frequency 02/03/2015 07/17/2019 Dysuria 02/03/2015 07/17/2019 documented as of this encounter (statuses as of 09/10/2023) Immunizations Name Administration Dates Next Due COVID-19 mRNA, LNP-s, No Pre serve, 2-Dose Series (Moderna) 08/13/2020,07/16/2020 COVID-19, mRNA, LNP-s, PF, B ooster, 100mcg/0.5mg (Moderna) 04/02/2021 Seasonal Influenza, PF, 6 M & above, IM , (FluLaval or Fluzone) 12/22/2022,12/02/2021,12/03/2020,2019 TDAP (age 10 and older)(Boostrix) 04/23/2022, TDAP, Age 7 and older, IM (Adacel) 10/14/2009([place]: Patient Refused) Zoster Vaccine Recombinant (Shingrix) 09/22/2021 [...] money to get more. Never true 07/17/2022 Utilities Answer Date Recorded Do you have trouble paying y our heating, water, or electric bill? (Adult - for ages 18 years and over) Not on file 09/03/2023 Is your family able to pay t he heat, water, or electric bill? (Household - for ages 0-17 years) Not on file 09/03/2023 Does your family have access to good internet? (Household - for ages 0-17 years) Not on file 09/03/2023 Social Connections Answer Date Recorded How often do you feel lonely or isolated from those around you? (Adult - for ages 18 years and over) Not on file 09/03/2023 Sex and Gender Information Value Date Recorded [...] No 12/10/2018 documented as of this encounter Plan of Treatment Upcoming Encounters Date Type Department Care Team (Latest Contact Info) Description 09/20/2023 10:30 AM EDT Imaging Radiology [address] [place] [address] 09/27/2023 11:15 AM EDT Hospital Encounter ENDO OSSC, Endoscopy Room [facility] [address] [place] [phone] Alex Templeton MD [address] [place] [address] 09/27/2023 11:15 AM EDT - 09/27/2023 11:45 AM EDT Surgery ENDO OSSC, Endoscopy Room [facility] [address] [place] [phone] Alex Templeton MD [address] [place] [address] COLONOSCOPY FLEXIBLE PROXIMAL DIAGNOSTIC 11/08/2023 9:00 AM EDT Laboratory Laboratory, [place] [address] [place] [address] [place] [address] [place] [address] 11/15/2023 1:00 PM EDT [facility] [address] [place] [address] Les Wong MD [address] [place] [address] 12/03/2023 11:20 AM EDT Office Visit Sleep Disorders Ctr [facility] [address] [place] [phone] Marcia Alejandre DO [address] [place] [address] 04/27/2024 9:20 AM EST [facility] Visit [facility] [place] [address] [facility] [phone] Devin Toscano MD [address] [facility] [place] [address] 11/12/2024 9:20 AM EDT Office Visit Dermatology, [place] [address] [facility], [place] [address] Maryam Solorzano PA-C [address] [place] [address] [place] [address] Pending Results Name Type Priority Associated Diagnoses Date /Time MYCODE SUBSEQUENT ADULT Lab Routine [employer] [facility] Other*[id number] 09/10/2023 10:09 AM EDT PSA Lab Routine Prostate cancer (HCC) 09/10/2023 10:09 AM EDT CREATININE Lab Routine Renal cell carcinoma of left kidney (HCC) 09/10/2023 10:09 AM EDT MYCODE SST1 Lab Routine [employer] Other*[id number] 09/10/2023 10:09 AM EDT MYCODE SST2 Lab Routine [employer] Other*[id number] 09/10/2023 10:09 AM EDT Scheduled Procedures Name Priority Associated Diagnoses Date/Ti me COLONOSCOPY FLEXIBLE PROXIMAL DIAGNOSTIC Recall History of colon polyps Screen for colon cancer 09/27/2023 11:15 AM EDT Health Maintenance Due Date Last Done Comments Hepatitis B (1 of 3 - 19+ 3-dose series) 10/26/1982 Cologuard 10/26/2008 Fecal Occult Blood Test 10/26/2008 Sigmoidoscopy 10/26/2008 Depression Monitoring 07/19/2022 07/19/2021 COVID-19 Vaccine (4 - 2023-24 season) 2022 04/02/2021, 08/13/2020, 07/16/2020 Colonoscopy 09/04/2023 09/03/2018, 08/16, 08/27/2016, Additional history exists Colorectal Cancer Screening 09/04/2023 Albumin/Creatinine Ratio 01/19/2024 021, 01/19/2020, 07/12/2017 GFR 04/17/2024 04/17/2023, 09/15, 01/12/2022, Additional history exists Diabetes Screening 04/17/2026 04/17/2023, 1 , 01/18/2021, Additional history exists Lipid Panel 04/26/2027 04/26/2022, 05/2020, 01/19/2020, Additional history exists DTaP,Tdap,and Td [...] Not on filedocumented as of this encounter Visit Diagnoses Diagnosis [employer] [facility] Other*[id number] Prostate cancer (HCC) Malignant neoplasm of prostate Renal cell carcinoma of left kidney (HCC) History of colon polyps Personal history of colonic polyps Screen for colon cancer Special screening for malignant neoplasms, colon documented in this encounter Advance Directives * Full Code (Latest Code Status on File) Date Activated Date Inactivated Comments 12/10/2018 12:16 PM 12/11/2018 9:01 PM Question Answer Comments Discussion of Advance Directives occurred with: Not Discussed Care Teams Editor Sound Relationship Specialty Start Date End Date Devin Toscano MD [address] [place] [address] PCP - General 04/27/08 documented as of this encounter
--- OUTSIDE RECORDS SUMMARY | 2023-10-10 05:53 | External Medical Summary | Summary of Care ---
Author Name Unknown Organization [facility] Address [address] [place] [address] Phone [phone] Care Team Providers Care Body Shop Mechanic Name Role Phone Devin Toscano MD Primary Care Provider [phone] Reason for Visit * Auth/Cert Specialty Diagnoses / Procedures Referred By Contac t Referred To Contact Diagnoses History of colon polyps Screen for colon cancer History of colon polyps [Z86.010] Screen for colon cancer [Z12.11] Procedures COLONOSCOPY, DIAGNOSTIC (RECTUM) COLONOSCOPY FLEXIBLE PROXIMAL DIAGNOSTIC Alex Templeton MD [address] [facility] [address] [facility] [address] [place] [id number] Referral ID Status Reason Start Date Expiration Date Visits Re quested Visits Authorized [id number] Encounter Details Date Type Department Care Team (Latest Contact Info) Description 09/23/2023 8:06 AM EDT - 09/23/2023 9:49 AM EDT Hospital Encounter [facility], Endoscopy [facility] [address] [place] [address] Angelica French MD [address] [place] [address] [place] [address] Colonoscopy Discharge Disposition: Home - Self Care Allergies No known active allergiesdocumented as of this encounter (statuses as of 09/23/2023) Medications Medication Sig Dispensed Refills Start Date [...] for Pain, Severe. 12 Tablet 03/09/2022 Active Additional Information Patient not taking.Reported on 09/17/2023 Sildenafil Citrate 50 MG Oral Tablet Take [...] the morning. 90 Tablet 3 04/24/2023 Active CPAP every night at bedtime. Active documented as of this encounter (statuses as of 09/23/2023) Active Problems Problem Noted Date Diagnosed Date [...] as of this encounter (statuses as of 09/23/2023) Resolved Problems Problem Noted Date Diagnosed Date Resolved Date Urinary frequency 02/03/2015 07/17/2019 Dysuria 02/03/2015 07/17/2019 documented as of this encounter (statuses as of 09/23/2023) Immunizations Name Administration Dates Next Due COVID-19 mRNA, LNP-s, No Pre serve, 2-Dose Series (Moderna) 08/13/2020,07/16/2020 COVID-19, mRNA, LNP-s, PF, B ooster, 100mcg/0.5mg (Moderna) 04/02/2021 Seasonal Influenza, PF, 6 M & above, IM , (FluLaval or Fluzone) 12/22/2022,12/02/2021,12/03/2020,2019 TDAP (age 10 and older)(Boostrix) 04/23/2022, TDAP, Age 7 and older, IM (Adacel) 10/14/2009(De savanahd: Patient Refused) Zoster Vaccine Recombinant (Shingrix) 09/22/2021 [...] Sign Reading Time Taken Comments Blood Pressure 116/64 09/23/2023 9:34 AM EDT Pulse 71 09/23/2023 9:34 AM EDT Temperature 36.1 C (97 F) 09/23/2023 9:34 AM EDT Respiratory Rate 16 09/23/2023 9:34 AM EDT Oxygen Saturation 97% 09/23/2023 9:34 AM EDT Inhaled Oxygen Concentration - - Weight 97.5 kg (215 lb) 09/23/2023 8:40 AM EDT Height 182.9 cm (6' 0.01") 09/23/2023 8:40 AM ED T Body Mass Index 29.15 09/23/2023 8:40 AM EDT documented in this encounter Functional Status Functional [...] No 12/10/2018 documented as of this encounter H&P Notes * Angelica French MD - 09/23/2023 8:53 AM EDT Endoscopy Pre-Procedure Assessment Name: Roderick Holland Date: 09/23/2023 Time: 8:53 AM Procedure(s): Colonoscopy; with Indication(s) of colon polyp surveillance Endoscopy Pre-Procedure Assessment: Prior to the procedure, the patient is identified. The patient's history, medications and allergieshave been reviewed. The patient is competent. The risks and benefits of the proposed procedure and the planned sedation have been discussed with the patient. All questions have been answered and informed consent for the procedure has been obtained. Prior to Admission medications Medication Sig Last Dose Discont. CPAP every night at bedtime. 09/22/2023 hydroCHLOROthiazide 25 MG Oral Tablet (Hydrodiuril) Take 1 Tablet by mouth in the morning. 09/22/2023 Losartan Potassium 50 MG Oral Tablet (Cozaar) Take 1 Tablet by mouth in the morning. 09/22/2023 Potassium Chloride Zora ER 20 MEQ Oral Tablet Extended Release Take 1 Tablet by mouth in the morning. 09/22/2023 Sildenafil Citrate 50 MG Oral Tablet Take 1 Tablet by mouth daily as needed for Erectile Dysfunction. Unknown VITAMIN D 1000 UNITS PO TABS 1 daily 09/22/2023 Sulfamethoxazole-Trimethoprim 800-160 MG Oral Tablet (Bactrim DS) Take 1 Tablet by mouth in the morning and 1 Tablet before bedtime. Do all this for 7 days. Until gone. Ketoconazole 2 % External Shampoo (Nizoral) Massage into scalp, leave for 5-10 minutes, then rinse.Use 3x weekly then titrate down as maintenance. Erythromycin 5 MG/GM Ophthalmic Ointment Apply a small amount of ointment to both upper eyelid incisions four times daily for two weeks, then at bedtime only for two weeks. Patient not taking: Reported on 08/19/2023 Not Taking Ketoconazole 2 % External Cream Apply 2x daily to rash on face until resolved, then when flaring (or continue with daily as maintenance) HYDROcodone-Acetaminophen 5-325 MG Oral Tablet Take 1 Tablet by mouth every 6 hours as needed for Pain, Severe. Patient not taking: Reported on 09/17/2023 Not Taking LORazepam 1 MG Oral Tablet (Ativan) 1 tab 45-60 minutes before procedure Patient not taking: Reported on 11/30/2022 Not Taking Zoster Vac Recomb Adjuvanted 50 MCG/0.5ML Intramuscular Suspension Reconstituted (Shingrix) Inject 0.5 mL into a large muscle now and repeat dose in 60 to 180 days Patient not taking: Reported on 07/09/2023 Not Taking Review of patient's allergies indicates: No Known Allergies BP 135/81 | Pulse 82 | Temp 36.7 C (98 F) (Tympanic) | Resp 16 | Ht 1.829 m (6' 0.01") | Wt 97.5 kg (215 lb) | SpO2 97% | BMI 29.15 kg/m | BSA 2.23 m Physical Exam: Mental Status Examination: alert and oriented. Resp: normal CV: normal ASA Grade: II - A patient with mild systemic disease. Abdomen: soft This patient has undergone a preprocedural evaluation. A determination has been made to proceed with the planned procedure under [facility] procedural guidelines and the [facility] Non-Emergent, Elective Medical Services and Treatment Recommendations (published on 06-23-19). The community and hospital prevalence of COVID-19 has been discussed as well as this patient's specific risks associated with SARS-CoV-19 infection. Based upon the clinical acuity and patient-specific care considerations, this procedure is deemed a Tier III - Procedures at little or no risk for clinical deterioration (example - cosmetic). After reviewing the risks and benefits, the patient is deemed in satisfactory condition to undergo the procedure. The anesthesia plan is to use general anesthesia. Angelica French MD 09/23/2023 documented in this encounter Procedure Notes * Deivn Toscano MD - 09/23/2023 8:52 AM EDTAssociated Order(s): COLONOSCOPY [facility] Patient Name: Roderick Holland Procedure Date: 09/23/2023 8:52 AM Date of : 1965 Admit Type: Outpatient Note Status: Finalized Date of : 1965 Admit Type: Outpatient Age: 57 Room: Endo 3 Gender: Male Note Status: Finalized Procedure: Colonoscopy Indications: High risk colon cancer surveillance: personal history of colon polyps Providers: Angelica French MD Patient Profile: Last Colonoscopy: August 2018. Referring MD: Devin Toscano MD Medicines: See the Anesthesia note for documentation of the administered medications Complications: No immediate complications. Procedure: Pre-Anesthesia Assessment: - Patient identification and proposed procedure were verified prior to the procedure by the physician, the nurse and the anesthesiologist. The procedure was verified in the pre-procedure area. - Prior to the procedure, a History and Physical was performed, and patient medications, allergies and sensitivities were reviewed. The patient's tolerance of previous anesthesia was reviewed. - The risks and benefits of the procedure and the sedation options and risks were discussed with the patient. All questions were answered and informed consent was obtained. - The medication list for this patient has been reviewed prior to the procedure and has been determined that the patient may proceed with the planned study. Any medication changes made as a result of the findings of this procedure have been discussed with the patient and/or cash posting representative at the time of discharge from the department. - After I obtained informed consent, the scope was passed under direct vision. All instruments were visually inspected immediately before and after removal from the patient to ensure they are fully intact. Throughout the procedure, the patient's blood pressure, pulse, and oxygen saturations were monitored continuously. The Colonoscope was introduced through the anus and advanced to the terminal ileum. The colonoscopy was performed without difficulty - mild pressure was used. The patient tolerated the procedure well. The quality of the bowel preparation was adequate to identify polyps 6 mm and larger in size. Findings & Specimens: The examined terminal ileum appeared normal. The examined colon appeared normal. Multiple small and large-mouthed diverticula were found in the sigmoid colon. Internal hemorrhoids were found during retroflexion. The exam was otherwise without abnormality on direct and retroflexion views. Impression: - The examined portion of the terminal ileum appeared normal. - The examined colon appeared normal. - Sigmoid diverticulosis. - Internal hemorrhoids. - The examination was otherwise normal on direct and retroflexion views. Recommendation: - Repeat colonoscopy in 5 years for surveillance. Angelica French MD 09/23/2023 9:19:36 AM This report has been signed electronically. documented in this encounter Nursing Notes * Sera Sims RN - 09/23/2023 9:48 AM EDT Patient is alert, pain free, passing flatus and tolerating po fluids prior to discharge. Patient has been visited by Dr. French. Patient has received and demonstrates understanding of discharge instructions. Patient ambulated to private auto accompanied by endo staff. * Kane Tapia RN - 09/23/2023 9:18 AM EDT Mid abdominal pressure given per Dr. French to assist with scope advancement. Pt tolerated well See anesthesia record for medication administered during procedure. Kane Tapia RN Pre cleaning of scope at the bedside started by biofuels production technician. * Veronica Rogers RN - 09/23/2023 8:52 AM EDT The following pt discharge instructions reviewed with pt prior to prodedure: No driving today. No alcohol today. No signing of legal documents. Rest as much as possible today and can return to normal activities tomorrow. No operating any heavy equipment today. Diet as tolerated. Pt verbalized understanding. Patient prepped, call benitez within reach of patient. documented in this encounter Plan of Treatment Upcoming Encounters Date Type Department Care Team (Late st Contact Info) Description 11/08/2023 9:00 AM EDT Laboratory Laboratory, [place] [address] [place] [address] [place] [address] [place] [address] 11/15/2023 1:00 PM EDT Telemedicine Urology, [place] [address] [place] [address] Les Wong MD [address] [place] [address] 12/03/2023 11:20 AM EDT Office Visit [facility] [address] [place] [address] Marcia Alejandre, DO [address] [place] [address] 04/27/2024 9:20 AM EST Office Visit Family [facility] [address] [facility], [place] [id number] Devin Toscano MD [address] [place] [address] 11/12/2024 9:20 AM EDT Office Visit Dermatology, Center [address] [place] [address] Maryam Solorzano, PACheryl [address] [place] [address] [place] [address] Scheduled Procedures Name Priority Associated Diagnoses Date/Ti me COLONOSCOPY FLEXIBLE PROXIMAL DIAGNOSTIC Recall History of colon polyps Screen for colon cancer 09/23/2023 9:01 AM EDT Health Maintenance Due Date Last Done Comments Hepatitis B Vaccine (1 of 3 - 19+ 3-dose series) 10/26/1982 Cologuard 10/26/2008 Fecal Occult Blood Test 10/26/2008 Sigmoidoscopy 10/26/2008 Depression Monitoring 07/19/2022 07/19/2021 COVID-19 Vaccine ( season) 2022 04/02/2021, 08/13/2020, 07/16/2020 Influenza Vaccine (FLU shot) (#1) 2023 12/22/2022, 12/02/2021, 12/03/2020, Additional history exists Albumin/Creatinine Ratio 01/19/2024 021, 01/19/2020, 07/12/2017 GFR 09/09/2024 09/10/2023, 03/20, 09/24/2022, Additional history exists Diabetes Screening 04/17/2026 04/17/2023, 1 , 01/18/2021, Additional history exists Lipid Panel 04/26/2027 04/26/2022, 05/2020, 01/19/2020, Additional history exists Colonoscopy 09/22/2028 09/23/2023, 08/16, 09/03/2018, Additional history exists Colorectal Cancer Screening 09/22/2028 DTaP,Tdap,and Td Vaccines (3 - Td or Tdap) 04/23/2032 04/23/2022, 11/13/2012 Zoster Vaccines Completed 09/22/2021, 07/19/2021 RETIRED - COLONOSCOPY-EVERY 5 YRS AGES 18-100 Discontinued 09/23/2023, 09/03/2018, 09/03/2018, Additional history exists HPV (Gardasil) Vaccine Aged Out No lo nger eligible based on patient's age to complete [...] Not on filedocumented as of this encounter Procedures Procedure Name Priority Date/Time Associated Diagnosis Comments COLONOSCOPY 09/23/2023 8:52 AM EDT documented in this encounter Results * COLONOSCOPY (09/23/2023 8:52 AM EDT) 09/23/2023 8:52 AM EDT Narrative Procedure Note Devin Toscano MD - 09/23/2023 8:52 AM EDT [facility] Patient Name: Roderick Holland Procedure Date: 09/23/2023 8:52 AM Date of : 1965 Admit Type: Outpatient Note Status:Finalized Date of : 1965 Admit Type: Outpatient Age: 57 Room: [facility] 3 Gender: Male Note Status: Finalized Procedure: Colonoscopy Indications: High risk colon cancer surveillance: personalhistory of colon polyps Providers: Angelica French MD Patient Profile: Last Colonoscopy: August 2018. Referring MD: Devin Toscano MD Medicines: See the Anesthesia note for documentation of theadministered medications Complications: No immediate complications. Procedure: Pre-Anesthesia Assessment: - Patient identification and proposed procedurewere verified prior to the procedure by the physician, the nurse and theanesthesiologist. The procedure was verified in the pre-procedure area. - Prior to the procedure, a History and Physicalwas performed, and patient medications, allergies and sensitivities werereviewed. The patient's tolerance of previous anesthesia was reviewed. - The risks and benefits of the procedure and thesedation options and risks were discussed with the patient. All questions wereanswered and informed consent was obtained. - The medication list for this patient has beenreviewed prior to the procedure and has been determined that the patient may proceed with the plannedstudy. Any medication changes made as a result of the findings of this procedure have beendiscussed with the patient and/or cash posting representative [facility] - After I obtained informed consent, the scope waspassed under direct vision. All instruments were visually inspected immediatelybefore and after removal from the patient to ensure they are fully intact. Throughout the procedure, the patient's bloodpressure, pulse, and oxygen saturations were monitored continuously. The Colonoscope wasintroduced through the anus and advanced to the terminal ileum. The colonoscopy wasperformed without difficulty - mild pressure was used. The patient tolerated theprocedure well. The quality of the bowel preparation was adequate to identify polyps 6mm and larger in size. Findings & Specimens: The examined terminal ileum appeared normal. The examined colon appeared normal. Multiple small and large-mouthed diverticula were found in thesigmoid colon. Internal hemorrhoids were found during retroflexion. The exam was otherwise without abnormality on direct and retroflexionviews. Impression: - The examined portion of the terminal ileumappeared normal. - The examined colon appeared normal. - Sigmoid diverticulosis. - Internal hemorrhoids. - The examination was otherwise normal on directand retroflexion views. Recommendation: - Repeat colonoscopy in 5 years for surveillance. Angelica French MD 09/23/2023 9:19:36 AM This report has been signed electronically. Devin Toscano MD [facility] documented in this encounter Administered Medications Inactive Administered Medications - up to 3 most recent administrations Medication Order MAR Action Action Date Dose Rate Site Acetaminophen (Tylenol) tab 650 mg 650 mg, Oral, PRN Pain, Mild, Starting on Sat09/23/23 at 0924, Until Sat09/23/23 at 1349, For 1 dose, Maximum of 4 grams (4000 mg) per day., Post-op isolyte-S pH 7.4 infusion Intravenous, at 100 mL/hr, Plasma-LYTE 148, isolyte-S, and isolyte-S pH 7.4 are considered equivalent - including for MAR barcode scanning., CONTINUOUS, Starting on Sat09/23/23 at 0900, Until Sat09/23/23 at 1349, Pre-Op Continue from Pre-Op 09/23/2023 8:59 AM EDT 100 mL/hr New Bag 09/23/2023 8:50 AM EDT 100 mL/hr documented in this encounter Active and Recently Administered Medications Times are shown in EDT. Continuous Medication Order 09/21/2023 09/22/2023 09/23/2023 isolyte-S pH 7.4 infusion Intravenous, at 100 mL/hr, Plasma-LYTE 148, isolyte-S, and isolyte-S pH 7.4 are considered equivalent - including for MAR barcode scanning., CONTINUOUS, Starting on Sat09/23/23 at 0900, Until Sat09/23/23 at 1349, Pre-Op 0850 (New Bag - Prov ider: Veronica Rogers RN)[id number] (Continue from Pre-Op - Provider: Evonne Brooks CRNA)0917 (Anes Intra-Op Fluid - Provider: Evonne Brooks CRNA) PRN Medication Order 09/21/2023 09/22/2023 09/23/2023 Acetaminophen (Tylenol) tab 650 mg 650 mg, Oral, PRN Pain, Mild, Starting on Sat09/23/23 at 0924, Until Sat09/23/23 at 1349, For 1 dose, Maximum of 4 grams (4000 mg) per day., Post-op documented in this encounter Advance Directives * Full Code (Latest Code Status on File) Date Activated Date Inactivated Comments 12/10/2018 12:16 PM 12/11/2018 9:01 PM Question Answer Comments Discussion of Advance Directives occurred with: Not Discussed Care Teams Body Shop Mechanic Relationship Specialty Start Date End Date Devin Toscano MD [address], [place] [id number] PCP - General 04/27/08 documented as of this encounter
--- OUTSIDE RECORDS SUMMARY | 2023-10-10 05:53 | External Medical Summary | Summary of Care ---
Author Name Unknown Organization [facility] Address [address] [place] [address] Phone [phone] Care Team Providers Care Javascript Programmer Name Role Phone Devin Toscano MD Primary Care Provider [phone] Reason for Visit * Reason Comments Follow Up 1 year for full skin exam, few concerns Encounter Details Date Type Department Care Team (Late st Contact Info) Description 05/14/2023 10:20 AM EST Office Visit Dermatology[address] [address] Maryam Solorzano PA-C [address] [place] [address] [place] [address] Hx of nonmelanoma skin cancer*; H/O dysplastic nevus; H/O actinic keratosis; Multiple nevi; Scar condition and fibrosis of skin; Skin exam, screening for cancer Allergies No known active allergiesdocumented as of this encounter (statuses as of 05/15/2023) Medications Medication Sig Dispensed Refills Start Date [...] 3 04/02/2022 Active Ketoconazole 2 % External CreamIndications:Daniela orrheic dermatitis Apply 2x daily to rash [...] as of this encounter (statuses as of 05/15/2023) Active Problems Problem Noted Date Diagnosed Date [...] as of this encounter (statuses as of 05/15/2023) Resolved Problems Problem Noted Date Diagnosed Date Resolved Date Urinary frequency 02/03/2015 07/17/2019 Dysuria 02/03/2015 07/17/2019 documented as of this encounter (statuses as of 05/15/2023) Immunizations Name Administration Dates Next Due COVID-19 [...] No 12/10/2018 documented as of this encounter Patient Instructions * Patient Instructions* Maryam Solorzano PA-C - 05/14/2023 10:24 AM EST SUNSCREEN USE AND SUN PROTECTION: 1. The best protection is sun avoidance. Seek shade if you can, especially between 10am to 4pm (peak sun hours). 2. Use sunscreen with an SPF (Sun Protection Factor - the number on most sunscreen bottles) of 30 or more that protects from Ultraviolet A (UVA) and Ultraviolet B (UVB) wavelength light (strongly recommend SPF 50). This is referred to as broad spectrum sun protection because it protects from most wa velengths in both spectrums of UVA and UVB light. Unfortunately, even though the protection is broad it is not complete, therefore making sun avoidance the best protection. UVB and UVA have both beenimplicated in causing skin cancers. Older sunscreens only protected from UVB and sunscreens with added UVA protection should contain Titanium dioxide, Zinc oxide, or Avobenzone. Other oil free, non-comedogenic lotion with SPF 30 or greater is fine. 3. Use sun protection if outside for 15 minutes or more. Apply 20-30 minutes before going out and reapply every 1-2 hours. No sunscreen is truly water ''proof'' and it will wash away with sweat, swimming and rubbing. 4. Wear tightly woven, loose fitting (cooler) long sleeved clothing, UV-blocking sun glasses (eyes need protection as well) and wide-brimmed hatwear (no straw hats with holes because light still getsthrough). Strongly recommended *Neutrogena Pure and Free Baby SPF 60 (have separate face and body lotions) orCeraVe AM facial lotion (with SPF 30). If looking for non toxic alternatives-look for non-bhaskar particle zinc. Product examples; Think sport, Think baby, Nathalie, Sylvan [employer] botanicalLimeLife, AlbEvolve IP, [place] baby. "Baby" products can be used for all ages. documented in this encounter Progress Notes * Pascual De Los Santos MD - 05/15/2023 7:47 AM EST I have seen and examined the patient via teledermatology review of chart note and photos with Maryam Solorzano PA-C. I have reviewed and agree with the assessment and plan. * Maryam Solorzano PA-C - 05/14/2023 10:20 AM EST SUBJECTIVE: History of Present Illness: Roderick Holland is a 57 year old male seen today for follow up of lesions/full skin exam. Previous office visit: 05/14/2022 Last attempted treatments include: daniela derm treatment (shampoo used, not cream). 2 lesions on lower legs to be evaluated. 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 REVIEW OF SYSTEMS: SKIN: No other new or changing moles. HEME/LYMPH: No new or enlarging lumps or bumps. CONSTITUTIONAL: No nausea, vomiting, fevers, chills, diarrhea. No recent unintended weight loss, night sweats, appetite or malaise. 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 MEDICA TIONS: Current Outpatient Medications Medication Sig Dispense Refill VITAMIN D 1000 UNITS PO TABS 1 daily Zoster Vac Recomb Adjuvanted 50 MCG/0.5ML Intramuscular Suspension Reconstituted (Shingrix) Inject 0.5 mL into a large muscle now and repeat dose in 60 to 180 days 1 Each 1 LORazepam 1 MG Oral Tablet (Ativan) 1 tab 45-60 minutes before procedure (Patient not taking: Reported on 11/30/2022) 3 Tablet 0 HYDROcodone-Acetaminophen 5-325 MG Oral Tablet Take 1 Tablet by mouth every 6 hours as needed for Pain, Severe. (Patient not taking: Reported on 11/30/2022) 12 Tablet 0 Sildenafil Citrate 50 MG Oral Tablet Take 1 Tablet by mouth daily as needed for Erectile Dysfunction. 30 Tablet 3 Ketoconazole 2 % External Cream Apply 2x daily to rash on face until resolved, then when flaring (or continue with daily as maintenance) (Patient not taking: Reported on 11/30/2022) 60 g 3 Erythromycin 5 MG/GM Ophthalmic Ointment Apply a small amount of ointment to both upper eyelid incisions four times daily for two weeks, then at bedtime only for two weeks. (Patient not taking: Reported on 11/30/2022) 3.5 g 2 Ketoconazole 2 % External Shampoo (Nizoral) Massage into scalp, leave for 5-10 minutes, then rinse.Use 3x weekly then titrate down as maintenance. 120 mL 3 hydroCHLOROthiazide 25 MG Oral Tablet (Hydrodiuril) Take 1 Tablet by mouth in the morning. 90 Tablet 3 Losartan Potassium 50 MG Oral Tablet (Cozaar) Take 1 Tablet by mouth in the morning. 90 Tablet 3 Potassium Chloride Zora ER 20 MEQ Oral Tablet Extended Release Take 1 Tablet by mouth in the morning. 90 Tablet 3 No current facility-administered medications for this visit. ALLERG IES: Patient has noknown allergies. OBJECT LAURE: GEN: alert, no distress, appears oriented, pleasant and cooperative. SKIN: Detailed exam of hair, face including lids and lips, neck, chest, abdomen, back, bilateral upper ext. (arm, hand, fingers), bilateral lower ext. (leg, foot, toes), palpation of scalp, fingernails, toenails, inguinal areas, groin (penis, scrotum and perineum), buttocks and anus completed: 1. R posterior upper arm-post inflammatory erythematous/white atrophic circular plaque. 2. R distal pretibial region-post inflammatory erythematous atrophic plaque with peripheral hyperpigmentation. 3. Trunk/bilat arms and legs (R distal lower leg)-About 30 total; 2-4mm light and light-medium brown macules and very few soft papules. 4. Scalp/eyebrows/nasolabial folds-White greasy scale adherent to hair shafts (much less) and on pink base in nasolabial folds (stable since last office visit). ASSESS MENT/PLAN: 1. Scar s/p atypical melanocytic proliferation on R posterior upper arm-No sign of repigmentation. 2. Scar s/p basal cell carcinoma on R distal pretibial region-No sign of recurrence. 3. Nevi on trunk/bilat arms and legs (R distal lower leg)-no tx needed, pt given reassurance and written education about diagnosis. Skin cancer brochure given at previous office visit (pt declined need for another) and ABCDE's discussed with patient. Annual full body skin examination (unless I recommended otherwise), self-examination, and sun protection (SPF 30+ daily to sun exposed areas, with reapplication every 1-2 hours when out in sun for long periods of time) advised and discussed. Recommended sooner follow up for new or changing lesions. These changes include rapid enlargement, changes in color or shape or symptoms, bleeding, or other concerns. The common features and behavior of non-melanoma skin cancers (e.g. BCC/SCC) as well as the ABCDEs and ugly duckling features of melanoma were also reviewed. 4. Seborrheic dermatitis of scalp and face-Continue ketoconazole 2% shampoo BIW and add 2% cream BID (have not used yet since thought it was going to cause more redness like Efudex). Patient alone today. Photo(s) of #1-4 taken, pt verbally consented to having photo(s) taken. Follow-up: 18 months for full skin exam Applicable photos (if any) and chart reviewed by Dr. Pascual De Los Santos. Presumed diagnoses, expected natural histories, and management options discussed with the patient at length. Questions were addressed and anticipatory guidance provided. They were instructed to contact me if additional questions, concerns, or problems develop in the interim. -There were no barriers to learning and no other pain was related to today's visit. The patient and/or person accompanying patient demonstrates understanding of the visit and treatment. Maryam Solorzano PA-C 05/14/2023 10:[address] [address] documented in this encounter Nursing Notes * Cecelia Shah LPN - 05/14/2023 10:19 AM EST Patient identified by full name and date of . Chief Complaint Patient presents with Follow Up 1 year for full skin exam, few concerns documented in this encounter Plan of Treatment Upcoming Encounters Date Type Department Care Team (Latest Contact Info) Description 05/17/2023 10:40 AM EST NeuroDiagnostic Study Neurophysiology [facility] [place] [address] [place] [address] Ponce Aguilar MD [address] [place] [address] 09/20/2023 10:30 AM EDT Imaging Radiology [address] [place] [address] 09/27/2023 11:15 AM EDT Hospital Encounter ENDO OSSC, Endoscopy Room [facility] [address] [place] [phone] Alex Templeton MD [address] [place] [address] 09/27/2023 11:15 AM EDT - 09/27/2023 11:45 AM EDT Surgery ENDO OSS, Endoscopy Room [facility] [address] [place] [phone] Alex Templeton MD [address] [place] [address] COLONOSCOPY FLEXIBLE PROXIMAL DIAGNOSTIC 11/08/2023 9:00 AM EDT Laboratory Laboratory, [place] [address] [facility], [place] [phone] [place], Laboratory [address] [place] [address] 11/15/2023 1:00 PM EDT Telemedicine Urology[address] [place] [address] Les Wong MD [address] [place] [facility] [place] [address] 12/03/2023 11:20 AM EDT Office Visit Sleep Disorders Ctr [facility] [address] [place] [phone] Marcia Alejandre DO [address] [place] [address] 04/27/2024 9:20 AM EST Office Visit Family [facility] [address] [place] [address] Devin Toscano MD [address] [place] [address] 11/12/2024 9:20 AM EDT Office Visit Dermatology, [place] [address] [place] [address] Maryam Solorzano PA-C [address] [place] [address] [place] [address] Scheduled Procedures Name Priority Associated Diagnoses Date/Ti me COLONOSCOPY FLEXIBLE PROXIMAL DIAGNOSTIC Recall History of colon polyps Screen for colon cancer 09/27/2023 11:15 AM EDT Health Maintenance Due Date Last Done Comments Hepatitis B (1 of 3 - 19+ 3-dose series) 10/26/1982 Depression Screening 07/19/2022 07/19/2021 COVID-19 Vaccine ( season) 2022 04/02/2021, 08/13/2020, 07/16/2020 COLONOSCOPY-EVERY 5 YRS AGES 18-100 09/04/2023 09/03/2018, 09/03/2018, 08/27/2016, Additional history exists Albumin/Creatinine Ratio 01/19/20242 021, 01/19/2020, 07/12/2017 GFR 04/17/2024 04/17/2023, 09/15, [...] Procedure Name Priority Date/Time Associated Diagnosis Comments DERM IMAGE (SITE) Routine 05/14/2023 H/O dysplastic nevus Hx of nonmelanoma skin cancer H/O actinic keratosis Multiple nevi Scar condition and fibrosis of skin Skin exam, screening for cancer documented in this encounter Results * DERM IMAGE (SITE) (05/14/2023) 05/14/2023 Maryam Solorzano PA-C DIGITAL PHOTOG [place] documented in this encounter Visit Diagnoses Diagnosis Hx of nonmelanoma skin cancer- Primary Personal history of other malignant neoplasm of skin H/O dysplastic nevus Personal history of diseases of skin and subcutaneous tissue H/O actinic keratosis Personal history of diseases of skin and subcutaneous tissue Multiple nevi Benign neoplasm of skin, site unspecified Scar condition and fibrosis of skin Skin exam, screening for cancer Screening for malignant neoplasm of the skin History of colon polyps Personal history of colonic polyps Screen for colon cancer Special screening for malignant neoplasms, colon documented in this encounter Advance Directives Latest Code Status on File Code Status Date Activated Date Inactivated Comments Full Code 12/10/2018 12:16 PM 12/11/2018 9:01 PM Question Answer Comments Discussion of Advance Direct ariana occurred with: Not Discussed Care Teams Javascript Programmer Relationship Specialty Start Date End Date Devin Toscano MD [address] [place] [address] PCP - General 04/27/08 documented as of this encounter
--- OUTSIDE RECORDS SUMMARY | 2023-10-10 05:53 | External Medical Summary | Summary of Care ---
Author Name Unknown Organization [facility] Address [address] [place] [address] Phone [phone] Care Team Providers Care Canvas Cutter Name Role Phone Devin Toscano MD Primary Care Provider [phone] Reason for Visit * Reason Comments Follow Up 1 year for full skin exam, few concerns Encounter Details Date Type Department Care Team (Late st Contact Info) Description 05/14/2023 10:20 AM EST Office Visit Dermatology[address] [address] Maryam Solorzano PA-C [address] [place] [address] [place] [address] Hx of nonmelanoma skin cancer*; H/O dysplastic nevus; H/O actinic keratosis; Multiple nevi; Scar condition and fibrosis of skin; Skin exam, screening for cancer Allergies No known active allergiesdocumented as of this encounter (statuses as of 05/14/2023) Medications Medication Sig Dispensed Refills Start Date [...] as of this encounter (statuses as of 05/14/2023) Active Problems Problem Noted Date Diagnosed Date [...] as of this encounter (statuses as of 05/14/2023) Resolved Problems Problem Noted Date Diagnosed Date Resolved Date Urinary frequency 02/03/2015 07/17/2019 Dysuria 02/03/2015 07/17/2019 documented as of this encounter (statuses as of 05/14/2023) Immunizations Name Administration Dates Next Due COVID-19 [...] Product examples; Think sport, Think baby, Nathalie, [employer], [place] [employer], [place] baby. "Baby" products can be used for all ages. documented in this encounter Progress Notes * Maryam Solorzano PA-C - 05/14/2023 10:20 AM EST SUBJECTIVE: History of Present Illness: Roderick Holland is a 57 year old male seen today for follow up of lesions/full skin exam. Previous office visit: 05/14/2022 Last attempted treatments include: daniela derm treatment (shampoo used, not cream). 2 lesions on lower legs to be evaluated. 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 REVIEW OF SYSTEMS: SKIN: No [...] 05/2020) Reviewed, same day as visit, 0 [facility] Dermatology lab work(s)/pathology report(s) as well as [...] treatment. Maryam Solorzano PA-C 05/14/2023 10:[address] [address] documented in this encounter Nursing Notes * [...] 05/17/2023 10:40 AM EST [facility]Diagn[facility] Study [facility] [address] [place], [place] [address] Ponce Aguilar MD [address] [place], [place] [address] 09/20/2023 10:30 AM EDT Imaging Radiology [address] [place] [address] 09/27/2023 11:15 AM EDT Hospital Encounter ENDO OSSC, Endoscopy Room [facility] [address] [place] [phone] Alex Templeton MD [address] [place] [address] 09/27/2023 11:15 AM EDT - 09/27/2023 11:45 AM EDT Surgery ENDO OSSC, Endoscopy Room [facility] [address] [place] [phone] Alex Templeton MD [address] [place] [address] COLONOSCOPY FLEXIBLE PROXIMAL DIAGNOSTIC 11/08/2023 9:00 AM EDT Laboratory Laboratory, [address] [phone] [address] [address] 11/15/2023 1:00 PM EDT Telemedicine Urology, [place] [address] [place] [address] Les Wong MD [address] [place] [address] 12/03/2023 11:20 AM EDT Office Visit Sleep Disorders Ctr [facility] [address] [place] [phone] Marcia Alejandre, DO [address] [place] [address] 04/27/2024 9:20 AM EST Office Visit Family [facility] [place] [address], [place] [phone] Devin Toscano MD [address] [place] [address] 11/12/2024 9:20 AM EDT Office Visit Dermatology, [place] [address] [place] [address] Maryam Solorzano, PACheryl [address] [place] [address] [place] [address] Scheduled Procedures Name Priority Associated Diagnoses Date/Ti [...] 01/19/20242 021, 01/19/2020, 07/12/2017 GFR 04/17/2024 04/17/2023, 07/, 01/12/2022, Additional history exists Diabetes Screening 04/17/2026 [...] as of this encounter Visit Diagnoses Diagnosis Hx of [...] ariana occurred with: Not Discussed Care Teams Canvas Cutter Relationship Specialty Start Date End Date Devin Toscano MD [address] [place] [address] PCP - General 04/27/08 documented as of this encounter
--- OUTSIDE RECORDS SUMMARY | 2023-10-10 05:53 | External Medical Summary | Summary of Care ---
Author Name Unknown Organization [facility] Address [address] [place] [address] Phone [phone] Care Team Providers Care Integrated Program Teacher Name Role Phone Devin Toscano MD Primary Care Provider [phone] Reason for Visit * Reason Comments Urinary Tract Infection Symptoms Encounter Details Date Type Department Care Team (Latest Contact Info) Description 07/09/2023 7:30 PM EDT Convenient Care Visit [facility] [address] [place] [address] Heidy Milligan PA-C [address] [place] [address] Urinary tract infection with hematuria, site unspecified*; Dysuria Allergies No known active allergiesdocumented as of this encounter (statuses as of 07/09/2023) Medications Medication Sig Dispensed Refills Start Date [...] Pain, Severe. 12 Tablet 0 03/09/2022 Active Sildenafil Citrate 50 MG Oral [...] two weeks. 3.5 g 2 08/10/2022 Active Ketoconazole 2 % External Shampoo (Nizoral)Indications :Seborrheic [...] the morning. 90 Tablet 3 04/24/2023 Active Sulfamethoxazole-Tri methoprim 800-160 MG Oral Tablet (Bactrim DS)Indications:Urina ry tract infection with hematuria, site unspecified Take 1 Tablet by mouth in the morning and 1 Tablet before bedtime. Do all this for 7 days. Until gone. 14 Tablet 0 07/09/2023 07/16/2023 Active documented as of this encounter (statuses as of 07/09/2023) Active Problems Problem Noted Date Diagnosed Date [...] as of this encounter (statuses as of 07/09/2023) Resolved Problems Problem Noted Date Diagnosed Date Resolved Date Urinary frequency 02/03/2015 07/17/2019 Dysuria 02/03/2015 07/17/2019 documented as of this encounter (statuses as of 07/09/2023) Immunizations Name Administration Dates Next Due COVID-19 [...] money to buy more. Never true 07/18/19 Within the past 12 months, t he [...] Sign Reading Time Taken Comments Blood Pressure 132/84 07/09/2023 6:41 PM EDT Pulse 84 07/09/2023 6:41 PM EDT Temperature 36.4 C (97.6 F) 07/09/2023 6:41 PM ED T Respiratory Rate 16 07/09/2023 6:41 PM EDT Oxygen Saturation 95% 07/09/2023 6:41 PM EDT Inhaled Oxygen Concentration - - Weight 102.1 kg (225 lb) 07/09/2023 6:41 PM EDT Height 182.9 cm (6') 07/09/2023 6:41 PM EDT Body Mass Index 30.52 07/09/2023 6:41 PM EDT documented in this encounter Functional Status [...] this encounter Patient Instructions * Patient Instructions* Heidy Milligan PA-C - 07/09/2023 7:01 PM EDT Lots of fluids documented in this encounter Progress Notes * Heidy Milligan PA-C - 07/09/2023 6:51 PM EDT Subjective: Nursing Notes: Arcelia Najera, ESTRELLITA 07/09/23 1845 Signed Roderick Holland is a 57 year old male who presents to clinic today for... Main Symptoms: feels uti, urgency and hematuria How long: Saturday Tried: Pt accompanied by: self HPI: Pt is a 57 year old YO male who presents c/o: Dysuria: not much, only when completely empty bladder Hematuria: yes: main issue, couple days sm amts noted Increased Frequency: yes Urgency: yes Flank Pain: no Abdominal Pain: mild lower Penal d/c: no Penal pain: no Fever: no Malaise: no UTI PMHX: yes Renal Stone PMHX: no Gential Lesion/Rash: no Pt has a hx of left renal cell cancer and prostate ca Last eGFR: 85 on04/17/23 Cr 1.0 Has had a partial nephrectomy Review of Systems Constitutional: Negative. Respiratory: Negative. Cardiovascular: Negative. Gastrointestinal: Negative for diarrhea, nausea and vomiting. Neurological: Negative. Several past notes from urology reviewed PMH: Patient Active Problem List Diagnosis Code HTN, goal below 140/90 I10 Vitamin D deficiency E55.9 JOEY (obstructive sleep apnea) G47.33 Major depressive disorder, single episode, moderate (HCC) F32.1 Urgency of urination R39.15 Elevated prostate specific antigen (PSA) R97.20 Renal cell carcinoma of left kidney (HCC) C64.2 Nodule of right lung R91.1 Tobacco use Z72.0 Thyroid nodule E04.1 Motion sickness T75.3XXA Goiter E04.9 Hx of nonmelanoma skin cancer Z85.828 Hx of actinic keratosis Z87.2 H/O dysplastic nevus Z86.018 Prostate cancer (HCC) C61 Current Outpatient Medications Medication Sig Dispense Refill VITAMIN D 1000 UNITS PO TABS 1 daily HYDROcodone-Acetaminophen 5-325 MG Oral Tablet Take 1 Tablet by mouth every 6 hours as needed for Pain, Severe. 12 Tablet 0 Sildenafil Citrate 50 MG Oral Tablet Take 1 Tablet by mouth daily as needed for Erectile Dysfunction. 30 Tablet 3 Ketoconazole 2 % External Cream Apply 2x daily to rash on face until resolved, then when flaring (or continue with daily as maintenance) 60 g 3 Erythromycin 5 MG/GM Ophthalmic Ointment Apply a small amount of ointment to both upper eyelid incisions four times daily for two weeks, then at bedtime only for two weeks. 3.5 g 2 Ketoconazole 2 % External [...] mouth in the morning. 90 Tablet 3 Sulfamethoxazole-Trimethoprim 800-160 MG Oral Tablet (Bactrim DS) Take 1 Tablet by mouth in the morning and 1 Tablet before bedtime. Do all this for 7 days. Until gone. 14 Tablet 0 Zoster Vac Recomb Adjuvanted 50 MCG/0.5ML Intramuscular Suspension Reconstituted (Shingrix) Inject 0.5 mL into a large muscle now and repeat dose in 60 to 180 days (Patient not taking: Reported on 07/09/2023) 1 Each 1 LORazepam 1 MG Oral Tablet (Ativan) 1 tab 45-60 minutes before procedure (Patient not taking: Reported on 11/30/2022) 3 Tablet 0 No current facility-administered medications for this visit. Past Medical History: Diagnosis Date HTN, goal below 140/90 Mild sleep apnea 03/18/2012 Pt turned down [facility] Sleep apnea, obstructive Past Surgical History: Procedure Laterality Date COLONOSCOPY, DIAGNOSTIC (RECTUM) 08/27/2016 adenomatous polyp, fair prep, repeat 2 yrs/COLONOSCOPY FLEXIBLE PROXIMAL DIAGNOSTIC performed by Jhon Serra MD at ENDOSCOPY [facility] COLONOSCOPY, DIAGNOSTIC (RECTUM) 09/03/2018 normal, repeat 5 yrs/COLONOSCOPY FLEXIBLE PROXIMAL DIAGNOSTIC performed by Linnette Castro DO at ENDOSCOPY [facility] KNEE ARTHROSCOPY/REMOVE OBJECT Right 03/09/2022 ARTHROSCOPY KNEE REMOVAL LOOSE BODY performed by Amandeep West DO at OR [facility] LAP,SURG-PARTIAL NEPHRECTOMY Left 12/10/2018 ROBOTIC LAPAROSCOPIC PARTIAL NEPHRECTOMY performed by Les Wong MD at OR [facility] OTHER Right about 1992 open surgery right knee - calcium deposits, cartilage loose bodies. GA was OK. PROSTATE BIOPSY 09/09/2017 done [address] office [address] Dr Garcia REPAIR BLEPHAROPTOSIS,EXTERNAL Bilateral 08/10/2022 REPAIR BLEPHAROPTOSIS LEVATOR RESECTION OR ADVANCEMENT EXTERNAL performed by Justin Faust DOat OR [facility] REVISE UPPER EYELID/EXCESS SKIN Bilateral 08/10/2022 BLEPHAROPLASTY UPPER EYELID WITH HERNIATED FAT PAD performed by Justin Faust DO at OR [facility] Review of patient's allergies indicates: No Known Allergies Objective: BP 132/84 | Pulse 84 | Temp 36.4 C (97.6 F) | Resp 16 | Ht 1.829 m (6') | Wt 102.1 kg (225 lb) | SpO2 95% | BMI 30.52 kg/m | BSA 2.28 m Physical Exam Constitutional: Appearance: Normal appearance. Cardiovascular: Rate and Rhythm: Normal rate and regular rhythm. Heart sounds: Normal heart sounds. Pulmonary: Effort: Pulmonary effort is normal. Breath sounds: Normal breath sounds. Abdominal: General: There is no distension. Palpations: Abdomen is soft. Tenderness: There is abdominal tenderness (mlid lower abd). There is no right CVA tenderness, left CVA tenderness or guarding. Neurological: Mental Status: He is alert and oriented to person, place, and time. Psychiatric: Mood and Affect: Mood normal. Behavior: Behavior normal. Result Notes Component Ref Range & Units 00:00 Color, Urine Yellow or Light Yellow [place] Clarity, Urine Clear Cloudy Glucose, Urine Negative mg/dL Negative Bilirubin, Urine Negative Negative Ketone, Urine Negative mg/dL Negative Specific Forrest, Urine 1.003 - 1.030 1.030 Blood, Urine Negative Large pH, Urine 5.0 - 7.5 units 6.0 Protein, Urine Negative mg/dL 30 Urobilinogen, Urine 0.2 - 1.0 mg/dL 1.0 Nitrite, Urine Negative Negative Esterase, Urine Negative Small ASSESSMENT/PLAN: Urinary tract infection with hematuria, site unspecified (Primary) - Sulfamethoxazole-Trimethoprim 800-160 MG Oral Tablet (Bactrim DS); Take 1 Tablet by mouth in the morning and 1 Tablet before bedtime. Do all this for 7 days. Until gone. Hematuria - URINALYSIS, POINT OF CARE (ENTER/EDIT) - CULTURE, URINE, QUANTITATIVE; Future; Expected date: 07/09/2023 - CULTURE, URINE, QUANTITATIVE - Sulfamethoxazole-Trimethoprim 800-160 MG Oral Tablet (Bactrim DS); Take 1 Tablet by mouth in the morning and 1 Tablet before bedtime. Do all this for 7 days. Until gone. Note sent to Dr. Wong in Urology to update that pt was seen today [facility] ed h/o provided on UTI and Men Heidy Milligan PA-C documented in this encounter Nursing Notes * Arcelia Najera LPN - 07/09/2023 6:40 PM EDT Roderick Holland is a 57 year old male who presents to clinic today for... Main Symptoms: feels uti, urgency and hematuria How long: Saturday Tried: Pt accompanied by: self documented in this encounter Miscellaneous Notes * Pt Handout (on AVS) - Heidy Milligan PA-C - 07/09/2023 7:03 PM EDT [id number] Urinary Tract Infections in Men Urinary tract infections (UTIs) are most often caused by bacteria that invade the urinary tract. The bacteria may come from outside the body. Or they may travel from the skin outside the rectum into the urethra. The urethra is the tube that carries urine from the bladder out of the body. Pain in oraround the urinary tract is a common symptom for most UTIs. Woman more commonly get UTIs than men. That?s because their urethra is shorter. Older men get UTIs more commonly than younger because older men may have an enlarged prostate. A UTI in a male is usually a sign that something is wrong with their urinary system. Using a catheter also increases the risk for UTI. Most UTIs are treated with antibiotics. These kill the bacteria. How long you need to take them depends on the type of infection. Take antibiotics exactly as directed until all of the medicine is gone. If you don't, the infection may not go away and may become harder to treat in the future. Gender words are used here to talk about anatomy and health risk. Please use this information in a way that works best for you and your provider as you talk about your care. Home care The lifestyle changes below will help get rid of your current infection. They may also help preventfuture UTIs: Drink plenty of fluids, such as water, juice, or other caffeine-free drinks. This helps flush bacteria out of your system. Empty your bladder when you feel the urge to urinate and before going to sleep. Urine that staysin your bladder makes an infection more likely. If you are uncircumcised, pull the foreskin back and wash under the foreskin each time you take a bath or shower. Follow-up care Follow up with your healthcare provider, or as advised if your symptoms continue after finishing all of the antibiotic medicine. Your healthcare provider may do tests to make sure the infection has cleared. If needed, more treatment can be started. When to get medical advice Call your healthcare provider right away if any of the following occur: Frequent urination Pain or burning when passing urine Weak urine stream Feeling that you can't empty your bladder Fever of 100.4F (38C) or higher , or as directed by your healthcare provider Urine that looks dark, cloudy, or reddish in color. This may mean that blood is in the urine. Urine smells bad Feeling pain even when not urinating Tiredness Pain in the belly (abdomen) area below the bellybutton, or in the back or side, below the ribs Nausea or vomiting Have a strong urge to urinate, but only a small amount of urine is passed (dribbling) Feeling confused or very tired (in older adults) Last Reviewed Date: 02/15/202219992642-0602 [employer]. All rights reserved. This information is not intended as a substitute for professional medical care. Always follow your healthcare professional's instructions. documented in this encounter Plan of Treatment Upcoming Encounters Date Type Department Care Team (Latest Contact Info) Description 09/20/2023 10:30 AM EDT Imaging Radiology [address] [place] [address] 09/27/2023 11:15 AM EDT Hospital Encounter ENDO OSSC, Endoscopy Room [facility] [address] [place] [phone] Alex Templeton MD [address] [place] [address] 09/27/2023 11:15 AM EDT - 09/27/2023 11:45 AM EDT Surgery ENDO OSS, Endoscopy Room [facility] [address] [place] [phone] Alex Templeton MD [address] [place] [address] COLONOSCOPY FLEXIBLE PROXIMAL DIAGNOSTIC 11/08/2023 9:00 AM EDT Laboratory Laboratory, [place] [address] [facility] [address] [place], Laboratory [address] [facility], [place] [address] 11/15/2023 1:00 PM EDT Telemedicine Urology, [employer] [address] [place] [address] Les Wong MD [address] [facility] [place] [address] 12/03/2023 11:20 AM EDT Office Visit Sleep Disorders Ctr [facility] [address] [place] [address] Marcia Alejandre DO [address] [facility] [place] [address] 04/27/2024 9:20 AM EST Office Visit [place] [address] [place] [phone] Devin Toscano MD [address] [place] [address] 11/12/2024 9:20 AM EDT [facility] [place] [address] [place] [address] Maryam Solorzano PACheryl [address] [place] [address] [place] [address] Pending Results Name Type Priority Associated Diagnoses Date /Time CULTURE, URINE, QUANTITATIVE Lab Routine Urinary tract infection with hematuria, site unspecified 07/09/2023 6:47 PM EDT Scheduled Orders Name Type Priority Associated Diagnoses Orde r Schedule CULTURE, URINE, QUANTITATIVE Lab Routine Expected: 2023, Expires: 07/08/2024 Scheduled Procedures Name Priority Associated Diagnoses Date/Ti me COLONOSCOPY FLEXIBLE PROXIMAL DIAGNOSTIC Recall History of colon polyps Screen for colon cancer 09/27/2023 11:15 AM EDT Health Maintenance Due Date Last Done Comments Hepatitis B (1 of 3 - 19+ 3-dose series) 10[birth year]26/1982 COVID-19 Vaccine ( season) 2022 04/02/2021, 08/13/2020, 07/16/2020 COLONOSCOPY-EVERY 5 YRS AGES 18-100 09/04/2023 09/03/2018, 09/03/2018, 08/27/2016, Additional history exists Albumin/Creatinine Ratio 01/19/2024 021, 01/19/2020, 07/12/2017 GFR 04/17/2024 04/17/2023, /, 01/12/2022, Additional history exists Diabetes Screening 04/17/2026 [...] Procedure Name Priority Date/Time Associated Diagnosis Comments URINALYSIS, POINT OF CARE (ENTER/EDIT) Routine 07/09/2023 Urinary tract infection with hematuria, site unspecified Dysuria documented in this encounter Results * URINALYSIS, POINT OF CARE (ENTER/EDIT) (07/09/2023) Color, Urine [place] Yellow or Light Yellow Clarity, Urine Cloudy Clear Glucose, Urine Negative Negative mg/dL Bilirubin, Urine Negative Negative Ketone, Urine Negative Negative mg/dL Specific Forrest, Urine 1.030 1.003 - 1.030 Blood, Urine Large Negative pH, Urine 6.0 5.0 - 7.5 units Protein, Urine 30 Negative mg/dL Urobilinogen, Urine 1.0 0.2 - 1.0 mg/dL Nitrite, Urine Negative Negative Esterase, Urine Small Negative Urine 07/09/2023 Heidy HAINESC LAB POINT OF C ARE TEST ENTER/EDIT ORDERABLES documented in this encounter Visit Diagnoses Diagnosis Urinary tract infection with hematuria, site unspecified- Primary Dysuria History of colon polyps Personal history of colonic polyps Screen for colon cancer Special screening for malignant neoplasms, colon documented in this encounter Advance Directives Latest Code Status on File Code Status Date Activated Date Inactivated Comments Full Code 12/10/2018 12:16 PM 12/11/2018 9:01 PM Question Answer Comments Discussion of Advance Direct ariana occurred with: Not Discussed Care Teams Integrated Program Teacher Relationship Specialty Start Date End Date Devin Toscano MD [address] [place] [address] PCP - General 04/27/08 documented as of this encounter"
--- OUTSIDE RECORDS SUMMARY | 2023-10-10 05:53 | External Medical Summary | Summary of Care ---
Author Name Unknown Organization [facility] Address [address] [place] [address] Phone [phone] Care Team Providers Care Field Supervisor Name Role Phone Devin Toscano MD Primary Care Provider [phone] Encounter Details Date Type Department Care Team (Late st Contact Info) Description 09/09/2023 Orders Only PATIENT PORTAL DO NOT DELETE THIS DEPT USED BY [place] [address] Allergies No known active allergiesdocumented as of this encounter (statuses as of 09/09/2023) Medications Medication Sig Dispensed Refills Start Date [...] as of this encounter (statuses as of 09/09/2023) Active Problems Problem Noted Date Diagnosed Date [...] as of this encounter (statuses as of 09/09/2023) Resolved Problems Problem Noted Date Diagnosed Date Resolved Date Urinary frequency 02/03/2015 07/17/2019 Dysuria 02/03/2015 07/17/2019 documented as of this encounter (statuses as of 09/09/2023) Immunizations Name Administration Dates Next Due COVID-19 [...] Description 09/20/2023 10:30 AM EDT Imaging Radiology [address] [place] [address] 09/27/2023 11:15 AM EDT Hospital Encounter ENDO [facility], Endoscopy Room [facility] [address] [place] [phone] Alex Templeton MD [address] [place] [address] 09/27/2023 11:15 AM EDT - 09/27/2023 11:45 AM EDT Surgery ENDO [facility], End[facility] [address] [place] [phone] Alex Templeton MD [address] [place] [address] COLONOSCOPY FLEXIBLE PROXIMAL DIAGNOSTIC 11/08/2023 9:00 AM EDT Laboratory Laboratory, [place] [address] [place] [address] [facility] [address] [place] [address] 11/15/2023 1:00 PM EDT [facility] [address] [place] [address] Les Wong MD [address] [place] [address] 12/03/2023 11:20 AM EDT Office Visit Sleep Disorders Ctr [facility] [address] [place] [phone] Marcia Alejandre DO [address] [place] [address] 04/27/2024 9:20 AM EST Office Visit Family [facility] [place] [address] [place] [facility] [place] [address] Devin Toscano MD [address] [place] [address] 11/12/2024 9:20 AM EDT Office Visit Dermatology, [place] [address] [place] [facility] [place] [address] Maryam Solorzano PA-C [address] [place] [address] [place] [address] Scheduled Procedures Name Priority Associated Diagnoses Date/Ti [...] exists Colorectal Cancer Screening 09/04/2023 Albumin/Creatinine Ratio 01/19/202401/18/2 021, 01/19/2020, 07/12/2017 GFR 04/17/2024 04/17/2023, 09/15, 01/12/2022, Additional history exists Diabetes Screening 04/17/2026 04/17/2023, 1 , 01/18/2021, Additional history exists Lipid Panel 04/26/2027 04/26/2022, 11/0 05/2020, 01/19/2020, Additional history exists DTaP,Tdap,and Td [...] Directives occurred with: Not Discussed Care Teams Field Supervisor Relationship Specialty Start Date End Date Devin Toscano MD [address] [place] [address] PCP - General 04/27/08 documented as of this encounter
--- OUTSIDE RECORDS SUMMARY | 2023-10-10 05:53 | External Medical Summary | Summary of Care ---
Author Name Unknown Organization [facility] Address [address] [place] [address] Phone [phone] Care Team Providers Care Director Sports Name Role Phone Devin Toscano MD Primary Care Provider [phone] Reason for Visit * Reason Onset Date Comments Advice 07/09/2023 Urinary Tract Infection Symptoms 07/09/2023 Encounter Details Date Type Department Care Team (Late st Contact Info) Description 07/09/2023 Telephone [facility] [address] [place] [address] Devin Toscano MD [address] [place] [address] Advice; Urinary Tract Infection Symptoms Allergies No known active allergiesdocumented as of this encounter (statuses as of 07/11/2023) Medications Medication Sig Dispensed Refills Start Date [...] as of this encounter (statuses as of 07/11/2023) Active Problems Problem Noted Date Diagnosed Date [...] as of this encounter (statuses as of 07/11/2023) Resolved Problems Problem Noted Date Diagnosed Date Resolved Date Urinary frequency 02/03/2015 07/17/2019 Dysuria 02/03/2015 07/17/2019 documented as of this encounter (statuses as of 07/11/2023) Immunizations Name Administration Dates Next Due COVID-19 [...] encounter Miscellaneous Notes * Telephone Encounter - Maryam Stanton OSA - 07/11/2023 10:09 AM EDT Patient was seen CC in [place]. 07/11/2023 * Telephone Encounter - Elvin Ballard OSA - 07/09/2023 4:02 PM EDT No Appointments Available Patient declined appointments?: No What Visit Type is needed? Other MALE with UTI If Acute Visit Type is needed, were surrounding clinics offered to patient (Yes/No)? Yes Was patient offered appointments with other available providers (Yes/No)? Yes See Call Details? (Yes or No): Yes documented in this encounter Plan of Treatment Upcoming Encounters Date Type Department Care Team (Latest Contact Info) Description 09/20/2023 10:30 AM EDT Imaging Radiology [address] [place] [address] 09/27/2023 11:15 AM EDT Hospital Encounter ENDO OSSC, Endoscopy Room [facility] [address] [place] [phone] Alex Templeton MD [address] [place] [address] 09/27/2023 11:15 AM EDT - 09/27/2023 11:45 AM EDT Surgery ENDO [facility], Endoscopy Room [facility] [address] [place] [phone] Alex Templeton MD [address] [place] [address] COLONOSCOPY FLEXIBLE PROXIMAL DIAGNOSTIC 11/08/2023 9:00 AM EDT [address] [phone] [facility] [address] [place] [address] 11/15/2023 1:00 PM EDT Telemedicine Urology, [place] [address] [place] [address] Les Wong MD [address] [place], [place] [id number] 12/03/2023 11:20 AM EDT Office Visit Sleep Disorders Ctr [facility] [address] [place] [phone] Marcia Alejandre DO [address] [facility] [place] [address] 04/27/2024 9:20 AM EST [facility] [address] [place] [address] Devin Toscano MD [address] [place] [address] 11/12/2024 9:20 AM EDT Office Visit Dermatology, [place] [address] [place] [address] Maryam Solorzano PA-C [address] [place] [address] [place] [address] Scheduled Procedures Name Priority Associated Diagnoses Date/Ti me COLONOSCOPY FLEXIBLE PROXIMAL DIAGNOSTIC Recall History of colon polyps Screen for colon cancer 09/27/2023 11:15 AM EDT Health Maintenance Due Date Last Done Comments Hepatitis B (1 of 3 - 19+ 3-dose series) 10/26/1982 COVID-19 Vaccine (2022- season) 2022 04/02/2021, 08/13/2020, 07/16/2020 COLONOSCOPY-EVERY 5 YRS AGES 18-100 09/04/2023 09/03/2018, 09/03/2018, 08/27/2016, Additional history exists Albumin/Creatinine Ratio 01/19/2024 021, 01/19/2020, 07/12/2017 GFR 04/17/2024 04/17/2023, 07, [...] ariana occurred with: Not Discussed Care Teams Director Sports Relationship Specialty Start Date End Date Devni Toscano MD [address] [place] [address] PCP - General 04/27/08 documented as of this encounter
--- OUTSIDE RECORDS SUMMARY | 2023-10-10 05:53 | External Medical Summary ---
Author Name Unknown Address Unknown Organization K01:[facility] [place] [address] [facility] [address] Laboratory Report Ordering Provider Test Date Status JOHN MARTINEZ 09/10/2023 10:09:12 Final Observation Date Value Abnormality Reference (Units ) Status MYCODE SPECIMEN-SST 09/10/2023 10:09:12 Freezing of extracted DNA, whole blood and/or serum. Final Performing Location [facility] [place] [address] [facility] [address]
--- OUTSIDE RECORDS SUMMARY | 2023-10-10 05:53 | External Medical Summary ---
Author Name Unknown Address Unknown Organization [id number]:LABORATORY [facility] [place] - [address] [facility] [address] Laboratory Report Ordering Provider Test Date Status AMBROSIO CHAPA 09/10/2023 10:09:12 Final Observation Date Value Abnormality Reference (Units ) Status PSA 09/10/2023 10:09:12 13.98 Above high normal <3 .10 (ng/mL) Final Performing Location LABORATORY [facility] - [address] [facility] [address]
--- OUTSIDE RECORDS SUMMARY | 2023-10-10 05:53 | External Medical Summary | Summary of Care ---
Author Name Unknown Organization [facility] Address [address] [place] [address] Phone [phone] Care Team Providers Care Thaw Shed Heater Tender Name Role Phone Devin Toscano MD Primary Care Provider [phone] Reason for Visit * Reason Comments EMG Encounter Details Date Type Department Care Team (Late st Contact Info) Description 05/17/2023 10:40 AM EST NeuroDiagnostic Study Neurophysiology [facility] [address] [place] [address] Ponce Aguilar MD [address] [place] [address] Arrived Allergies No known active allergiesdocumented as of this encounter (statuses as of 05/17/2023) Medications Medication Sig Dispensed Refills Start Date [...] as of this encounter (statuses as of 05/17/2023) Active Problems Problem Noted Date Diagnosed Date [...] as of this encounter (statuses as of 05/17/2023) Resolved Problems Problem Noted Date Diagnosed Date Resolved Date Urinary frequency 02/03/2015 07/17/2019 Dysuria 02/03/2015 07/17/2019 documented as of this encounter (statuses as of 05/17/2023) Immunizations Name Administration Dates Next Due COVID-19 [...] No 12/10/2018 documented as of this encounter Progress Notes * Ponce Aguilar MD - 05/17/2023 11:34 AM EST The current study is done to evaluate several months of right lateral forearm pain with some paresthesias along this same area sparing the hand The study is normal in that nerve conduction studies performed on the right median ulnar and right radial sensory nerves are normal and needle EMG done on right C5 through T1 innervated muscles emphasizing muscles innervated by the radial and ulnar nerve is also normal. There is therefore no evidence for a polyneuropathy, a right median ulnar or radial mononeuropathy, right brachial plexopathy orC5 through T1 motor radiculopathy Ponce Aguilar MD documented in this encounter Plan of Treatment Upcoming Encounters Date Type Department Care Team (Latest Contact Info) Description 09/20/2023 10:30 AM EDT Imaging Radiology [address] [place] [address] 09/27/2023 11:15 AM EDT Hospital Encounter ENDO OSSC, Endoscopy Room [facility] [address] [place] [phone] Alex Templeton MD [address] [place] [address] 09/27/2023 11:15 AM EDT - 09/27/2023 11:45 AM EDT Surgery ENDO OSS, Endoscopy Room [facility] [address] [place] [phone] Alex Templeton MD [address] [place] [address] COLONOSCOPY FLEXIBLE PROXIMAL DIAGNOSTIC 11/08/2023 9:00 AM EDT Laboratory Laboratory, [place] [address] [place] [phone] [place], Laboratory [address] [place] [address] 11/15/2023 1:00 PM EDT [facility] [address] [place] [address] Les Wong MD [address] [place], [place] [phone] 12/03/2023 11:20 AM EDT Office Visit Sleep Disorders Ctr [facility] [address] [place] [address] Marcia Alejandre DO [address] [place] [address] 04/27/2024 9:20 AM EST Office Visit [facility] [address] [facility] [phone] Devin Toscano MD [address] [place] [address] 11/12/2024 9:20 AM EDT Office Visit Dermatology, [place] [address] [facility] [place] [address] Maryam Solorzano PA-C [address] [place] [address] [place] [address] Scheduled Procedures Name Priority Associated Diagnoses Date/Ti [...] as of this encounter Visit Diagnoses Diagnosis Numbness and tingling of right arm- Primary Disturbance of skin sensation History of colon polyps Personal history of colonic polyps Screen for colon cancer Special screening for malignant neoplasms, colon documented in this encounter Advance Directives Latest Code Status on File Code Status Date Activated Date Inactivated Comments Full Code 12/10/2018 12:16 PM 12/11/2018 9:01 PM Question Answer Comments Discussion of Advance Direct ariana occurred with: Not Discussed Care Teams Thaw Shed Heater Tender Relationship Specialty Start Date End Date Devin Toscano MD [address] [place] [address] PCP - General 04/27/08 documented as of this encounter
--- OUTSIDE RECORDS SUMMARY | 2023-10-10 05:53 | External Medical Summary ---
Author Name Unknown Address Unknown Organization [id number]:LABORATORY [facility] [place] - [address] [place] [address] Laboratory Report Ordering Provider Test Date Status OLAF ODOM 07/09/2023 18:47:36 Final Observation Date Value Abnormality Reference (Units) Status Bacteria identified in Specimen by Culture 07/09/2023 18:47:36 No significant growth Final Test: Culture, Urine, Quanti tative
Specimen Source: Urine, Clean Catch
Specimen Type: Urine
Specimen Date: 07/09/2023 6:47 PM
Result Date: 07/10/2023 5:24 PM
Result Status: Final result
Resulting Lab: LABORATORY [facility]
[address]
[facility] [address]

CULTURE

No significant growth

null Performing Location LABORATORY [facility] - [address] [place] [id number]
--- OUTSIDE RECORDS SUMMARY | 2023-10-10 05:53 | External Medical Summary ---
Author Name Unknown Address Unknown Organization K01:LABORATORY [facility] - [facility] [place] [address] Laboratory Report Ordering Provider Test Date Status AMBROSIO CHAPA 09/10/2023 10:09:12 Final Observation Date Value Abnormality Reference (Units ) Status Creatinine 09/10/2023 10:09:12 1.1 0.6-1.2 (mg/dL) Final Glomerular filtration rate/1.73 sq M.predicted [Volume Rate/Area] in Serum, Plasma or Blood by Creatinine-based formula (CKD-EPI) 09/10/2023 10:09:12 75 >=60 (mL/min) Final eGFR is calculated based on the CKD-EPI 2020 equation Performing Location LABORATORY [facility] - [facility] [place] [address]
--- OUTSIDE RECORDS SUMMARY | 2023-10-10 05:54 | External Medical Summary | Summary of Care ---
Author Name Unknown Organization [facility] Address [address] [place] [address] Phone [phone] Care Team Providers Care Casing In Line Setter Name Role Phone Deivn Toscano MD Primary Care Provider Reason for Visit * Reason Comments Outpatient Testing Encounter Details Date Type Department Care Team (Late st Contact Info) Description 04/17/2023 9:10 AM EST Laboratory Laboratory, [place] [address] [place] [address] [place], Laboratory [address] [place] [address] Prostate cancer (HCC); HTN, goal below 140/90 Allergies No known active allergiesdocumented as of this encounter (statuses as of 04/17/2023) Medications Medication Sig Dispensed Refills Start Date [...] Additional Information Patient not taking.Reported on 11/30/2022 Losartan Potassium 50 MG Oral Tablet (Cozaar)Indications: HTN, goal below 140/90 Take 1 Tablet by mouth in the morning. 90 Tablet 0 03/07/2023 Active Potassium Chloride Zora ER 20 MEQ Oral Tablet Extended ReleaseIndications:H ypokalemia Take 1 Tablet by mouth in the morning. 90 Tablet 0 03/07/2023 Active hydroCHLOROthiazide 25 MG Oral Tablet (Hydrodiuril)Indicat ions:HTN, goal below 140/90 Take 1 Tablet by mouth in the morning. 90 Tablet 0 03/07/2023 Active Ketoconazole 2 % External Shampoo (Nizoral)Indications :Seborrheic dermatitis Massage into scalp, leave for 5-10 minutes, then rinse. Use 3x weekly then titrate down as maintenance. 120 mL 3 03/04/2023 Active documented as of this encounter (statuses as of 04/17/2023) Active Problems Problem Noted Date Diagnosed Date H/O dysplastic nevus 04/25/2021 Overview: Small atypical [...] as of this encounter (statuses as of 04/17/2023) Resolved Problems Problem Noted Date Diagnosed Date Resolved Date Urinary frequency 02/03/2015 07/17/2019 Dysuria 02/03/2015 07/17/2019 documented as of this encounter (statuses as of 04/17/2023) Immunizations Name Administration Dates Next Due COVID-19 [...] Care Team (Late st Contact Info) Description 04/24/2023 10:00 AM EST Office Visit [address] [address] Devin Toscano MD [address] [place] [address] 05/06/2023 8:00 AM EST Telemedicine Urology, [place] [address] [place] [address] Les Wong MD [address] [place] [address] 05/14/2023 10:20 AM EST Office Visit Dermatology, [place] [address] [place] [address] Maryam Solorzano PA-C [address] [place] [address] [place] [address] 12/03/2023 11:20 AM EDT Office Visit Sleep Disorders Ctr [facility] [address] [place] [phone] Marcia Alejandre DO [address] [place] [address] Pending Results Name Type Priority Associated Diagnoses Date /Time PSA Lab Routine Prostate cancer (HCC) 04/17/2023 9:21 AM EST BASIC METABOLIC PANEL Lab Routine HTN, goal below 140/90 04/17/2023 9:21 AM EST Scheduled Procedures Name Priority Associated Diagnoses Date/Ti me COLONOSCOPY FLEXIBLE PROXIMAL DIAGNOSTIC Recall History of colon polyps Health Maintenance Due Date Last Done Comments Hepatitis B (1 of 3 - 3-dose series) 1965 Depression Screening 07/19/2022 07/19/2021 COVID-19 Vaccine ( season) 2022 04/02/2021, 08/13/2020, 07/16/2020 COLONOSCOPY-EVERY 5 YRS AGES 18-100 09/04/2023 09/03/2018, 09/03/2018, 08/27/2016, Additional history exists GFR 09/25/2023 09/24/2022, 12/17, 09/22/2021, Additional history exists Albumin/Creatinine Ratio 01/19/20242 021, 01/19/2020, 07/12/2017 Diabetes Screening 01/12/2025 01/12/2022, 1 03/20/2020, 01/19/2020, Additional history exists Lipid Panel 04/26/2027 04/26/2022, [...] as of this encounter Visit Diagnoses Diagnosis Prostate cancer (HCC) Malignant neoplasm of prostate HTN, goal below 140/90 Unspecified essential hypertension documented in this encounter Advance Directives Latest Code Status on File Code Status Date Activated Date Inactivated Comments Full Code 12/10/2018 12:16 PM 12/11/2018 9:01 PM Question Answer Comments Discussion of Advance Direct ariana occurred with: Not Discussed Care Teams Casing In Line Setter Relationship Specialty Start Date End Date Devin Toscano MD [address] [place] [facility] [place] [address] PCP - General 04/27/08 documented as of this encounter
--- OUTSIDE RECORDS SUMMARY | 2023-10-10 05:54 | External Medical Summary | Summary of Care ---
Author Name Unknown Organization [facility] Address [address] [place] [address] Phone [phone] Care Team Providers Care Pharmacy Picking Tech Name Role Phone Devin Toscano MD Primary Care Provider [phone] Reason for Visit * Reason Comments Outpatient Testing Encounter Details Date Type Department Care Team (Late st Contact Info) Description 04/17/2023 9:10 AM EST Laboratory Laboratory, [place] [address] [place] [address] [place], [facility] [address] [place] [address] Prostate cancer (HCC); HTN, goal [...] Description 04/24/2023 10:00 AM EST Office Visit [address] [address] Devin Toscano MD [address] [place] [address] 05/06/2023 8:00 AM EST Telemedicine Urology, [place] [address] [place] [address] Les Wong MD [address] [place] [address] 05/14/2023 10:20 AM EST Office Visit Dermatology, [place] [address] [place] [address] Maryam Solorzano PA-C [address] [place] [address] [place] [address] 12/03/2023 11:20 AM EDT Office Visit Sleep Disorders Ctr [facility] [address] [place] [phone] Marcia Alejandre DO [address] [place] [address] Pending Results Name Type Priority Associated Diagnoses [...] ariana occurred with: Not Discussed Care Teams Pharmacy Picking Tech Relationship Specialty Start Date End Date Devin Toscano MD [address] [place] [facility] [place] [address] PCP - General 04/27/08 documented as of this encounter
--- OUTSIDE RECORDS SUMMARY | 2023-10-10 05:54 | External Medical Summary | Summary of Care ---
Author Name Unknown Organization [facility] Address [address] [place] [address] Phone [phone] Care Team Providers Care Customer Operations Specialist Name Role Phone Devin Toscano MD Primary Care Provider [phone] Reason for Referral * Precert (Within 10 days (routine)) - Pending Review Specialty Diagnoses / Procedures Referred By Contac t Referred To Contact Radiology Diagnoses Renal cell carcinoma of left kidney (HCC) Procedures CT KIDNEY W WO IV CONTRAST - WO ORAL CONTRAST Les Wong MD [address] [place] [address] Referral ID Status Reason Start Date Expiration Date V isits Requested Visits Authorized [id number] Pending Review 09/16/[phone] Encounter Details Date Type Department Care Team (Late st Contact Info) Description 05/06/2023 8:00 AM EST Telemedicine Urology, [place] [address] [place] [address] Les Wong MD [address] [place] [address] Prostate cancer (HCC)*; Renal cell carcinoma of left kidney (HCC); Erectile dysfunction, unspecified erectile dysfunction type Allergies No known active allergiesdocumented as of this encounter (statuses as of 05/06/2023) Medications Medication Sig Dispensed Refills Start Date [...] as of this encounter (statuses as of 05/06/2023) Active Problems Problem Noted Date Diagnosed Date [...] as of this encounter (statuses as of 05/06/2023) Resolved Problems Problem Noted Date Diagnosed Date Resolved Date Urinary frequency 02/03/2015 07/17/2019 Dysuria 02/03/2015 07/17/2019 documented as of this encounter (statuses as of 05/06/2023) Immunizations Name Administration Dates Next Due COVID-19 [...] (15 years old or older) No 12/11/19 Cognitive Status Response Date of Assessm ent Because of a physical, menta l, or emotional condition, do you have serious difficulty concentrating, remembering, or making decisions? (5 years old or older) No 12/10/2018 documented as of this encounter Progress Notes * Les Wong MD - 05/06/2023 8:24 AM EST Patient location: HOME. I was in a hospital or clinic location. After connecting through [employer],patient was verified with two unique identifiers. Patient (or authorized legal inside technical sales representative) was then informed that this was a Telemedicine visit and being conducted confidentially over secure lines. Methods to assure confidentiality were taken. Patient acknowledged consent and understanding of pr ivacy and security of the Telemedicine visit. The patient agreed to participate. 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 He hadan MRI in 06/2020 which showed no suspicious lesions. He elected active surveillance. His PSA increased to 14 ng/ml and he underwent repeat biopsy in 09/2021 which showed Bharat GG1 in 3/12 cores. He had an MRI in 09/2022 which was PI-RADS 2. His most recent PSA is 11.5 ng/mL, essentially stable from 6 months prior. 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 He is erectile dysfunction which is responsive to sildenafil 50 mg. Review of Systems: Constitutional: denies unintentional weight loss, fevers, or fatigue GI: denies abdominal pain, nausea, vomiting, or changes in bowel habits : per HPI Past Medical History: Diagnosis Date HTN, goal below 140/90 Mild sleep apnea 03/18/2012 Pt turned down CPaP Sleep apnea, obstructive Physical Exam Telemedicine Labs Reviewed: PSA Results: Lab Results Component Value Date/Time PSA - [facility] 11.45 (H) 04/17/2023 09:21 AM PSA - [facility] 12.30 (H) 09/24/2022 09:34 AM PSA - [facility] 12.30 (H) 03/23/2022 10:31 AM PSA - [facility] 11.45 (H) 01/19/2020 09:00 AM PSA - [facility] 9.11 (H) 06/16/2019 08:38 AM PSA - [facility] 10.59 (H) 01/13/2019 08:31 AM PSA SCREENING 4.46 (H) 12/15/2013 08:22 AM Imaging: Reviewed per HPI Assessment and Plan: This is a 57 year old male with favorable intermediate risk prostate cancer, stage I renal cell carcinoma, ED. Prostate cancer - PSA essentially stable, no concerning lesions on recent MRI, continue active surveillance with PSA in 6 months Stage I clear cell RCC - ESTELA on most recent imaging, repeat CT kidney in 09/2023 and then transition to annual ultrasound. He did mention that he likes the CT to monitor the benign lung nodule that has been present since 2019. I will message his PCP to consider low-dose lung CT. ED - continue sildenafil current dose. Les Wong MD FACS documented in this encounter Plan of Treatment Upcoming Encounters Date Type Department Care Team (Latest Contact Info) Description 05/14/2023 10:20 AM EST Office Visit [address] [address] Maryam Solozrano, PA-Gregoria [address] [place] [address] [place] [address] 05/17/2023 10:40 AM EST NeuroDiagnostic Study Neurophysiology [facility] [place] [address] [place] [address] Ponce Aguilar MD [address] [place] [address] 09/27/2023 11:15 AM EDT Hospital Encounter ENDO [facility], Endoscopy Room [facility] [address] [facility] [place] [phone] Alex Templeton MD [address] [place] [address] 09/27/2023 11:15 AM EDT - 09/27/2023 11:45 AM EDT Surgery ENDO [facility], Endoscopy Room [facility] [address] [place] [phone] Alex Templeton MD [address] [place] [address] COLONOSCOPY FLEXIBLE PROXIMAL DIAGNOSTIC 12/03/2023 11:20 AM EDT Office Visit Sleep Disorders Ctr [facility] [address] [place] [phone] Marcia Alejandre DO [address] [place] [address] 04/27/2024 9:20 AM EST Office Visit [facility] [address] [place] [address] Devin Toscano MD [address] [place] [address] Scheduled Orders Name Type Priority Associated Diagnoses Orde r Schedule CT KIDNEY W WO IV CONTRAST - WO ORAL CONTRAST Medical Imaging Routine Renal cell carcinoma of left kidney (HCC) Expected: 09/16/2023, Expires: 06/03/2024 PSA Lab Routine Prostate cancer (HCC) Expected: 09/16/2023, Expires: 05/06/2024 Scheduled Procedures Name Priority Associated Diagnoses Date/Ti [...] this encounter Visit Diagnoses Diagnosis Prostate cancer (HCC)- Primary Malignant neoplasm of prostate Renal cell carcinoma of left kidney (HCC) Erectile dysfunction, unspecified erectile dysfunction type History of colon polyps Personal history of colonic polyps Screen for colon cancer Special screening for malignant neoplasms, colon documented in this encounter Advance Directives Latest Code Status on File Code Status Date Activated Date Inactivated Comments Full Code 12/10/2018 12:16 PM 12/11/2018 9:01 PM Question Answer Comments Discussion of Advance Direct ariana occurred with: Not Discussed Care Teams Customer Operations Specialist Relationship Specialty Start Date End Date Devin Toscano MD [address] [place] [address] PCP - General 04/27/08 documented as of this encounter
--- OUTSIDE RECORDS SUMMARY | 2023-10-10 05:54 | External Medical Summary | Summary of Care ---
Author Name Unknown Organization [facility] Address [address] [place] [address] Phone [phone] Care Team Providers Care Law Instructor Name Role Phone Devin Toscano MD Primary Care Provider [phone] Reason for Visit * Reason Onset Date Comments Appointment 04/24/2023 Encounter Details Date Type Department Care Team (Late st Contact Info) Description 04/24/2023 Telephone [facility] [address] [place] [address] Devin Toscano MD [address] [place] [address] Appointment Allergies No known active allergiesdocumented as of this encounter (statuses as of 04/24/2023) Medications Medication Sig Dispensed Refills Start Date [...] as of this encounter (statuses as of 04/24/2023) Active Problems Problem Noted Date Diagnosed Date [...] as of this encounter (statuses as of 04/24/2023) Resolved Problems Problem Noted Date Diagnosed Date Resolved Date Urinary frequency 02/03/2015 07/17/2019 Dysuria 02/03/2015 07/17/2019 documented as of this encounter (statuses as of 04/24/2023) Immunizations Name Administration Dates Next Due COVID-19 [...] encounter Miscellaneous Notes * Telephone Encounter - Ruthie Ibarra OSA - 04/24/2023 1:32 PM EST Called pt and lmm * Telephone Encounter - Anneliese Garcia OSA - 04/24/2023 11:06 AM EST 04/24/23 Pt needs to be scheduled for a Colonoscopy. Answers to questions: Partial Kidney removal Sleep [place] & CPAP Machine Any day and any time okay. Best number to call [phone] documented in this encounter Plan of Treatment Upcoming Encounters Date Type Department Care Team (Late st Contact Info) Description 05/06/2023 8:00 AM EST Telemedicine Urology, [place] [address] [place], [place] [phone] Les Wong MD [address] [place] [address] 05/14/2023 10:20 AM EST [facility] [address] [place] [address] Maryam Solorzano PA-C [address] [place] [address] [place] [address] 12/03/2023 11:20 AM EDT Office Visit Sleep Disorders Ctr [facility] [address] [place] [phone] Marcia Alejandre DO [address] [facility] [place] [address] 04/27/2024 9:20 AM EST Office Visit Family [facility] [address] [place] [phone] Devin Toscano MD [address] [place] [address] Scheduled Procedures Name Priority Associated Diagnoses Date/Ti me COLONOSCOPY FLEXIBLE PROXIMA L DIAGNOSTIC Recall History of colon polyps Screen for colon cancer Health Maintenance Due Date Last Done Comments [...] ariana occurred with: Not Discussed Care Teams Law Instructor Relationship Specialty Start Date End Date Devin Toscano MD [address] [place] [facility] [place] [address] PCP - General 04/27/08 documented as of this encounter
--- OUTSIDE RECORDS SUMMARY | 2023-10-10 05:54 | External Medical Summary | Summary of Care ---
Author Name Unknown Organization [facility] Address [address] [place] [address] Phone [phone] Care Team Providers Care Associate Manager Affiliate Marketing Name Role Phone Devin Toscano MD Primary Care Provider Reason for Referral * Ancillary Services (Within 30 days (routine)) - Pending Review Specialty Diagnoses / Procedures Referred By Betina jensen Referred To Contact Gastroenterology Diagnoses Screen for colon cancer Devin Toscano MD [address] [place] [address] Referral ID Status Reason Start Date Expiration Date Visits Requested Visits Authorized [id number] Pending Review Ancillary Services Required 04/24/[phone] Question Answer Referral Priority Within 30 days (routine) Where should this appointment be scheduled? [facility] Comments ALERT: Do not order for pediatric patients (18 years or younger). Cancel off screen and order PEDS GASTROENTEROLOGY CONSULT (Type: 1 visit only-Evaluate and Treat) The following Pt. Instructions are available: - Gastro Colonoscopy Prep Instructions [35404] - Gastro Colonoscopy Prep Instructions (Surinamese Version) [09603] Go to the Pt. Instructions section within the Visit Navigator to access. Colonoscopy ASGE Guidelines: Average risk screening (begin at age 50, 10 year intervals) ADDITIONAL INFORMATION 1. Is the patient on Coumadin? No 2. Is the patient on Pradaxa? No Reason for Visit * Reason Comments Follow Up Yearly return; would like to discuss his range of motion and burning and tearing in his R forearm and is not sure why Encounter Details Date Type Department Care Team (Late st Contact Info) Description 04/24/2023 10:00 AM EST Office Visit [facility] [address] [place] [facility] [place] [address] Devin Toscano MD [address] [facility] [place] [address] Neuritis*; Renal cell carcinoma of left kidney (HCC); Prostate cancer (HCC); Major depressive disorder, single episode, moderate (HCC); HTN, goal below 140/90; Hypokalemia; Screen for colon cancer Allergies No known active allergiesdocumented as of this encounter (statuses as of 04/24/2023) Medications Medication Sig Dispensed Refills Start Date End Date Status VITAMIN D 1000 UNITS PO TABS 1 daily 0 Active Zoster Vac Recomb Adjuvanted 50 MCG/0.5ML Intramuscular Suspension Reconstituted (Shingrix)Indicatio ns:Need for shingles vaccine Inject 0.5 mL into a large muscle now and repeat dose in 60 to 180 days 1 Each 1 07/19/2021 Active LORazepam 1 MG Oral Tablet (Ativan)Indications :Anxiety state 1 tab 45-60 minutes before procedure 3 Tablet 0 07/19/2021 Active Additional Information Patient not taking.Reported on 11/30/2022 HYDROcodone-Acetami nophen 5-325 MG Oral Tablet Take 1 Tablet by mouth every 6 hours as needed for Pain, Severe. 12 Tablet 0 03/09/2022 Active Additional Information Patient not taking.Reported on 11/30/2022 Sildenafil Citrate 50 MG Oral Tablet Take 1 Tablet by mouth daily as needed for Erectile Dysfunction. 30 Tablet 3 04/02/2022 Active Ketoconazole 2 % External CreamIndications:Se borrheic dermatitis Apply 2x daily to rash on [...] on 11/30/2022 Ketoconazole 2 % External Shampoo (Nizoral)Indication s:Seborrheic dermatitis Massage into scalp, leave for 5-10 minutes, then rinse. Use 3x weekly then titrate down as maintenance. 120 mL 3 03/04/2023 Active hydroCHLOROthiazide 25 MG Oral Tablet (Hydrodiuril)Indica tions:HTN, goal below 140/90 Take 1 Tablet by mouth in the morning. 90 Tablet 3 04/24/2023 Active Losartan Potassium 50 MG Oral Tablet (Cozaar)Indications :HTN, goal below 140/90 Take 1 Tablet by mouth in the morning. 90 Tablet 3 04/24/2023 Active Potassium Chloride Zora ER 20 MEQ Oral Tablet Extended ReleaseIndications: Hypokalemia Take 1 Tablet by mouth in the morning. 90 Tablet 3 04/24/2023 Active Losartan Potassium 50 MG Oral Tablet (Cozaar)Indications :HTN, goal below 140/90 Take 1 Tablet by mouth in the morning. 90 Tablet 0 03/07/2023 4 Discontinue d(Refill) Potassium Chloride Zora ER 20 MEQ Oral Tablet Extended ReleaseIndications: Hypokalemia Take 1 Tablet by mouth in the morning. 90 Tablet 0 03/07/2023 4 Discontinue d(Refill) hydroCHLOROthiazide 25 MG Oral Tablet (Hydrodiuril)Indica tions:HTN, goal below 140/90 Take 1 Tablet by mouth in the morning. 90 Tablet 0 03/07/2023 4 Discontinue d(Refill) documented as of this encounter (statuses as [...] Smoking Tobacco: Never Smokeless Tobacco: Current Snuff Tobacco Cessation:Ready to Q uit: Not Asked; Counseling Given: Not Answered Comments:chew - 1 can every 2 - [...] Sign Reading Time Taken Comments Blood Pressure 134/68 04/24/2023 9:57 AM EST Pulse 89 04/24/2023 9:57 AM EST Temperature 35.9 C (96.6 F) 04/24/2023 9:57 AM ES T Respiratory Rate 16 04/24/2023 9:57 AM EST Oxygen Saturation 94% 04/24/2023 9:57 AM EST Inhaled Oxygen Concentration - - Weight 97.5 kg (215 lb) 04/24/2023 9:57 AM EST Height - - Body Mass Index 29.16 11/30/2022 11:36 AM EDT documented in this encounter Functional [...] as of this encounter Progress Notes * Devin Toscano MD - 04/24/2023 10:18 AM EST Subjective: Roderick Holland is a 57 year old male. Chief Complaint Patient presents with Follow Up Yearly return; would like to discuss his range of motion and burning and tearing in his R forearm and is not sure why HPI: 57-year-old is seen as yearly exam. He does have a history of prostate cancer in is under active surveillance as well as obstructive sleep apnea and history renal cell carcinoma of the left kidney in which he had a partial nephrectomy and hypertension. He assures me he is using his CPAP daily.He follows with Dr. Wong in regards to both the left partial nephrectomy/renal cell carcinoma and prostate cancer. He anticipates imaging studies this summer probably of kidney and prostate. He has had recurring pain in the left proximal forearm as well as numbness over that same area. Certain activities set it off such as reaching out and grabbing a door knob and turning it. He has not had the same discomfort holding a glass out in front of him. He has had some intermittent numbness towards the tip of 2nd digit. Patient Active Problem List Diagnosis Code HTN, [...] 60 to 180 days 1 Each 1 Sildenafil Citrate 50 MG Oral Tablet Take 1 Tablet by mouth daily as needed for Erectile Dysfunction. 30 Tablet 3 Ketoconazole 2 % External Shampoo (Nizoral) Massage [...] mouth in the morning. 90 Tablet 3 LORazepam 1 MG Oral Tablet (Ativan) 1 tab 45-60 minutes before procedure (Patient not taking: Reported on 11/30/2022) 3 Tablet 0 HYDROcodone-Acetaminophen 5-325 MG Oral Tablet Take 1 Tablet by mouth every 6 hours as needed for Pain, Severe. (Patient not taking: Reported on 11/30/2022) 12 Tablet 0 Ketoconazole 2 % External Cream Apply 2x [...] taking: Reported on 11/30/2022) 3.5 g 2 No current facility-administered medications for this visit. Review of patient's allergies indicates: No Known Allergies Objective: BP 134/68 | Pulse 89 | Temp 35.9 C (96.6 F) | Resp 16 | Wt 97.5 kg (215 lb) | SpO2 94% | BMI 29.16 kg/m | BSA 2.23 m Physical Exam: CONST: alert, pleasant, no acute distress HEAD: normocephalic, atraumatic NECK: supple, soft, no adenopathy EARS: canals normal, TMs normal Eyes - PERRLA, EOM'I OROPHARYNX: clear, no swelling or erythema, moist CV: regular rate and rhythm, no murmur CHEST: clear to auscultation bilaterally, no rales or wheezing ABD: soft, non tender, non distended, no masses or hepatosplenomegaly EXT I do not see any deformity about the right forearm. Does have some area of relatively focal tenderness over the medial aspect i.e. medial epicondyle. He does not have discomfort with pronation orsupination against resistance he does not have discomfort with biceps or triceps against resistance. He has reasonable range of motion of the right shoulder and good strength at 90 abduction. He has full range of motion of the cervical spine NEURO: AAOx3, no gross focal deficits, cerebellar signsnormal, affect appropriate MENTAL STATUS: no evidence of thought disorder, no delusional thought, no evidence of paranoia, thought is non-tangential. SKIN: no rash or significant lesions ASSESSMENT/PLAN: Neuritis (Primary)-possible on her neuropathy. Numbness 2nd digit fingertip does not fit. - EMG; Future; Expected date: 04/25/2023 Renal cell carcinoma of left kidney (HCC)-follow with Dr. Wogn Prostate cancer (HCC)-active surveillance. Follow with Dr. Wong Major depressive disorder, single episode, moderate (HCC). He is doing well he has not on any medication HTN, goal below 140/90 - hydroCHLOROthiazide 25 MG Oral Tablet (Hydrodiuril); Take 1 Tablet by mouth in the morning. - Losartan Potassium 50 MG Oral Tablet (Cozaar); Take 1 Tablet by mouth in the morning. Hypokalemia - Potassium Chloride Zora ER 20 MEQ Oral Tablet Extended Release; Take 1 Tablet by mouth in the morning. Screen for colon cancer - COLONOSCOPY, GI REFERRAL OP. He will be 5 years post last colonoscopy with findings of benign polyp Um in August I am going to schedule him again to be seen in a year but will follow through with his symptoms in the right arm Um after the EMG studies. Devin Toscano MD documented in this encounter Nursing Notes * Maki Curran PARTNER MARKETING INTERN - 04/24/2023 10:02 AM EST The patient has been properly identified by confirmation of name and date of . Chief Complaint Patient presents with Follow Up Yearly return; would like to discuss his range of motion and burning and tearing in his R forearm and is not sure why documented in this encounter Plan of Treatment Upcoming Encounters Date Type Department Care Team (Latest Contact Info) Description 05/06/2023 8:00 AM EST Telemedicine Urology, [place] [address], [place] [id number] Les Wong MD [address] [place] [address] 05/14/2023 10:20 AM EST Office Visit Dermatology[address] [address] Maryam Solorzano PA-C [address] [place] [address] [place] [address] 09/27/2023 11:15 AM EDT Hospital Encounter ENDO OSS, Endoscopy Room [facility] [address] [place] [phone] Alex Templeton MD [address] [place] [address] 09/27/2023 11:15 AM EDT - 09/27/2023 11:45 AM EDT Surgery ENDO [facility], Endoscopy Room [facility] [address] [place] [phone] Alex Templeton MD [address] [place] [address] COLONOSCOPY FLEXIBLE PROXIMAL DIAGNOSTIC 12/03/2023 11:20 AM EDT Office Visit [facility] [address] [place] [address] Marcia Alejandre DO [address] [place] [address] 04/27/2024 9:20 AM EST Office [facility] [address] [facility] [phone] Devin Toscano MD [address] [facility] [place] [address] Scheduled Procedures Name Priority Associated Diagnoses Date/Ti me COLONOSCOPY FLEXIBLE PROXIMAL DIAGNOSTIC Recall History of colon polyps Screen for colon cancer 09/27/2023 11:15 AM EDT Scheduled Referrals Name Type Priority Associated Diagnoses Orde r Schedule COLONOSCOPY, GI REFERRAL OP Referral Within 30 days (routine) Screen for colon cancer Ordered: 04/24/2023 Health Maintenance Due Date Last Done Comments [...] as of this encounter Visit Diagnoses Diagnosis Neuritis- Primary Neuralgia, neuritis, and radiculitis, unspecified Renal cell carcinoma of left kidney (HCC) Prostate cancer (HCC) Malignant neoplasm of prostate Major depressive disorder, single episode, moderate (HCC) Major depressive disorder, single episode, moderate HTN, goal below 140/90 Unspecified essential hypertension Hypokalemia Hypopotassemia Screen for colon cancer Special screening for malignant neoplasms, colon History of colon polyps Personal history of colonic polyps Screen for colon cancer Special screening for malignant neoplasms, colon documented in this encounter Advance Directives Latest Code Status on File Code Status Date Activated Date Inactivated Comments Full Code 12/10/2018 12:16 PM 12/11/2018 9:01 PM Question Answer Comments Discussion of Advance Direct ariana occurred with: Not Discussed Care Teams Associate Manager Affiliate Marketing Relationship Specialty Start Date End Date Devin Toscano MD [address] [place] [address] PCP - General 04/27/08 documented as of this encounter"
--- OUTSIDE RECORDS SUMMARY | 2023-10-10 05:54 | External Medical Summary | Summary of Care ---
Author Name Unknown Organization [facility] Address [address] [place] [address] Phone [phone] Care Team Providers Care Commercial Estimator Name Role Phone Devin Toscano MD Primary Care Provider Reason for Visit * Reason Onset Date Comments Appointment 04/24/2023 Encounter Details Date Type Department Care Team (Late st Contact Info) Description 04/24/2023 Telephone [facility] [address] [place] [address] Devin Toscano MD [address] [place] [address] Appointment Allergies No known active [...] encounter Miscellaneous Notes * Telephone Encounter - Raven Jennings OSA - 04/24/2023 1:55 PM EST Pt is scheduled on 09/27/23 @ 10:[address] Templeton * Telephone Encounter - Ruthie Ibarra OSA - 04/24/2023 1:32 PM EST Called pt and lmm * Telephone Encounter - Anneliese Garcia OSA - 04/24/2023 11:06 AM EST 04/24/23 Pt needs to be scheduled for a Colonoscopy. Answers to questions: Partial Kidney removal Sleep [place]a & CPAP Machine Any day and any time okay. Best number to call [phone] documented in this encounter Plan of Treatment Upcoming Encounters Date Type Department Care Team (Latest Contact Info) Description 05/06/2023 8:00 AM EST [facility] [address] [place] [address] Les Wong MD [address] [place] [address] 05/14/2023 10:20 AM EST Office Visit Dermatology[address] [address] Maryam Solorzano PA-C [address] [place] [address] [place] [address] 09/27/2023 11:15 AM EDT Hospital Encounter ENDO [facility], Endoscopy Room [facility] [address] [place] [phone] Alex Templeton MD [address] [place] [address] 09/27/2023 11:15 AM EDT - 09/27/2023 11:45 AM EDT Surgery ENDO [facility], Endoscopy Room [facility] [address] [place] [phone] Alex Templeton MD [address] [place] [address] COLONOSCOPY FLEXIBLE PROXIMAL DIAGNOSTIC 12/03/2023 11:20 AM EDT Office Visit [facility] Disorders [facility]tr [facility] [address] [place] [phone] Marcia Alejandre, [address] [place] [address] 04/27/2024 9:20 AM EST Office Visit [facility] [address] [place] [address] Devin Toscano MD [address] [place] [address] Scheduled Procedures Name Priority Associated Diagnoses Date/Ti [...] ariana occurred with: Not Discussed Care Teams Commercial Estimator Relationship Specialty Start Date End Date Devin Toscano MD [address] [place] [address] PCP - General 04/27/08 documented as of this encounter
--- OUTSIDE RECORDS SUMMARY | 2023-10-10 05:54 | External Medical Summary ---
Author Name Unknown Address Unknown Organization [id number]:[facility] [place] [facility] [address] [place] [address] Laboratory Report Ordering Provider Test Date Status ART CARRILLO 04/17/2023 09:21:20 Final Observation Date Value Abnormality Reference (Units ) Status BUN 04/17/2023 09:21:20 17 6-20 (mg/dL) Final Creatinine 04/17/2023 09:21:20 1.0 0.6-1.2 (mg/dL) Final Glomerular filtration rate/1.73 sq M.predicted [Volume Rate/Area] in Serum, Plasma or Blood by Creatinine-based formula (CKD-EPI) 04/17/2023 09:21:20 85 >=60 (mL/min) Final eGFR is calculated based on the CKD-EPI 2020 equation SODIUM 04/17/2023 09:21:20 141 135-146 (m mol/L) Final Potassium 04/17/2023 09:21:20 4.0 3.5-5.1 (m mol/L) Final Cl 04/17/2023 09:21:20 103 98-107 (mm ol/L) Final CO2 04/17/2023 09:21:20 21 Below low normal 22- 32 (mmol/L) Final Anion gap 04/17/2023 09:21:20 17 Above high normal 7- 15 (mmol/L) Final Glucose 04/17/2023 09:21:20 99 70-120 (mg /dL) Final Calcium 04/17/2023 09:21:20 9.5 8.4-10.2 ( mg/dL) Final Performing Location [facility] [place] [address] [place] [address]
--- OUTSIDE RECORDS SUMMARY | 2023-10-10 05:54 | External Medical Summary | Summary of Care ---
Author Name Unknown Organization [facility] Address [address] [place] [address] Phone [phone] Care Team Providers Care Patrol Police Sergeant Name Role Phone Devin Toscano MD Primary Care Provider Reason for Visit * Reason Onset Date Comments Appointment 04/24/2023 Encounter Details Date Type Department Care Team (Late st Contact Info) Description 04/24/2023 Telephone [facility] [address] [place] [address] Devin Toscano MD [address] [place] [address] Appointment Allergies No known active [...] any time okay. Best number to call [phone] documented in this encounter Plan of Treatment Upcoming Encounters Date Type Department Care Team (Late st Contact Info) Description 05/06/2023 8:00 AM EST Telemedicine Urology, [place] [address] [place], [place] [phone] Les Wong MD [address] [place] [address] 05/14/2023 10:20 AM EST [facility] [address] [place] [address] Maryam Solorzano PA-C [address] [place] [address] [place] [address] 12/03/2023 11:20 AM EDT Office Visit Sleep Disorders Ctr [facility] [address] [facility] [place] [phone] Marcia Alejandre DO [address] [place] [address] 04/27/2024 9:20 AM EST Office Visit [facility] [address] [place] [phone] Devin Toscano MD [address] [place] [address] Scheduled Procedures Name Priority Associated Diagnoses Date/Ti [...] ariana occurred with: Not Discussed Care Teams Patrol Police Sergeant Relationship Specialty Start Date End Date Devin Toscano MD [address] [facility] [place] [address] PCP - General 04/27/08 documented as of this encounter
--- OUTSIDE RECORDS SUMMARY | 2023-10-10 05:54 | External Medical Summary ---
Author Name Unknown Address Unknown Organization K01:[facility] - [address] [facility] [id number] Laboratory Report Ordering Provider Test Date Status AMBROSIO CHAPA 04/17/2023 09:21:20 Final Observation Date Value Abnormality Reference (Units ) Status PSA 04/17/2023 09:21:20 11.45 Above high normal <3 .10 (ng/mL) Final Performing Location [facility] [address] [facility] [address]
[2023-10-10] MEDS: PIPERACILLIN/TAZOBACTAM 4.5 GM in DEXTROSE 5% MINI-B 100 ML IV SCH (06:17)
[2023-10-10 06:42] LABS: Basophils # (auto) 0.04 K/uL (0.00-0.20); Basophils % (auto) 0.5 %; Eosinophils # (auto) 0.36 K/uL (0.00-0.50); Eosinophils % (auto) 4.1 %; Hematocrit (blood only) 36.8 % (42.0-52.0); Hemoglobin 12.9 g/dl (14.0-18.0); Immature Granulocytes # (auto) 0.04 K/uL (0.01-0.20); Immature Granulocytes % (auto) 0.5 %; Lymphocytes # (auto) 1.14 K/uL (1.20-3.40); Mean Corpuscular Hemoglobin 31.1 pg (25.0-34.0); Mean Corpuscular Hgb Conc 35.1 g/dL (32.0-36.0); Mean Corpuscular Volume 88.7 fL (80.0-100.0); Mean Platelet Volume 8.7 fL (9.4-12.4); Monocytes # (auto) 1.04 K/uL (0.11-0.59); Monocytes % (auto) 11.9 %; Neutrophils # (auto) 6.13 K/uL (1.40-6.50); Platelet Count 217 K/uL (130-400); RDW Coefficient of Variation 13.2 % (11.5-14.5); RDW Standard Deviation 43.2 fL (36.4-46.3); Red Blood Count 4.15 M/uL (4.70-6.10); White Blood Count 8.75 K/ul (4.8-10.8)
--- NOTE | 2023-10-10 06:55 | XRay Report ---
XR chest 1V portable CLINICAL HISTORY: fever TECHNIQUE: Single frontal radiograph of the chest was obtained. Comparison: Comparison is made to chest radiograph 12/12/2018 FINDINGS: No lines and tubes are seen. The cardiomediastinal silhouette is normal. The lungs are clear. No evid ence of pleural effusion or pneumothorax. IMPRESSION: No acute abnormalities and in particular no radiographic evidence of pneumonia. ACT 112: Negative or not required by law. Electronically signed by: Wilmer Skinner M.D. 10/10/2023 6:54 AM
[2023-10-10 07:00] LABS: BUN Creatinine Ratio 9.7 (10-20); Calcium 8.5 mg/dl (8.6-10.3); Creatinine Clr Calc Pharmacy 95.1 ml/min; Est GFR (African American) 91.7 ml/min; Est GFR (Non-African American) 79.1 ml/min
[2023-10-10] MEDS: ENOXAPARIN INJ 40 MG/0.4 ML SYR SQ SCH (08:02)
[2023-10-10] MEDS: LOSARTAN POTASSIUM 50 MG TAB PO SCH (08:02)
[2023-10-10 08:07] LABS: Estimated Average Glucose 108 mg/dl; Hemoglobin A1C 5.4 % (4.5-5.6)
[2023-10-10] MEDS: PHENAZOPYRIDINE HCL 100 MG TAB PO PRN (08:37)
--- NOTE | 2023-10-10 08:50 | Hospitalist Progress Note ---
Date of Service October 10, 2023 Assessment & Plan (1) Sepsis: (2) Acute UTI: Plan Roderick Holland is 57y/o M with PMHx of JOEY on CPAP, history of thyroid nodule, history of nodule in right lung, HTN, history of vitamin D deficiency, history of renal cell carcinoma of left kidney s/p partial left nephrectomy [2019], history of prostate cancer, history of actinic keratosis, depression, history of tobacco use, history of nonmelanoma skin cancer and other problems listed below who presented to the ED secondary to lower back pain, fever + continued urinary frequency and was found to be septic on admission with an acute UTI. Patient was diagnosed with a UTI on Saturday (10/05) and was subsequently placed on Macrobid without much to any improvement of his symptoms. Acute UTI & Sepsis - Pt met sepsis criteria on admission 2/2 tachycardia, fever, WBC>12K + present source of infection. Complicated UTI; Pt ultimately failed outpatient treatment. Leukocytosis on admission - improving. Lactate and procalcitonin were both negative. Admitting UA w/ evidence of infection. CXR and RVP were both negative; CTAP revealed tiny locules of air w/in the urinary bladder. Received dose of IV Rocephin in ED; Pt ultimately started on IV Zosyn - will continue. Pt also received 2L of IVF w/ NSS in ED; Receiving 1L of KCl/NSS x 1 bag this morning 2/2 hypokalemia. Blood cultures pending - will continue to follow. Preliminary urine culture growing gram-negative bacilli; Will continue to follow results and adjust ABX regimen PRN. Pt was hyperglycemic on arrival, no known DM hx; Hgb A1c 5.4 on 10/09/23 - WNL. Hypokalemia K+ was 2.9 on presentation; Pt's K+ was repleted in the ED. Pt received IV KCl/NSS x 1 bag this morning. K+ level still low at 3.0 today, will repeat BMP at 12PM. Will follow repeat BMP this afternoon; Monitor K+ level closely and replete PRN. Acute Anemia - Likely 2/2 sepsis + decreased level of serum iron. Hgb level slightly downtrending today; Hgb 14.8 yesterday --> 12.9 today. Hct is also low. Will pursue anemia work-up in AM - follow results and monitor Hgb. HTN Chronic, stable; Can continue COOK TACO losartan. COOK TACO hydrochlorothiazide on hold for now 2/2 presenting sepsis status; Suspect pt's hypokalemia is 2/2 daily diuretic use. JOEY on CPAP: Ordered CPAP HS, continue. H/O Prostate Cancer [facility]. Under active surveillance with PSA every 6 months. H/O Renal Cell Carcinoma of L Kidney S/P Partial L Nephrectomy [2019] Does not appear that the pt follows w/ nephrology per chart review. Renal function has remained stable; baseline Cr ~1.0-1.1 per chart review. Continue to avoid nephrotoxic meds when able, closely monitor renal function. H/O R Lung Nodule Per CT scan conducted on 09/20/23: "Stable 11 x 10 mm solid nodule in the right lower lobe, which is unchanged since 2019 and is likely benign." DVT Prophylaxis: SQ Lovenox Code Status: FULL CODE PCP: Devin Toscano MD Disposition: Admitted in Med/Tele Patient seen in collaboration with Dr. Finn. Please see addendum. I spent a total of 45 minutes coordinating, documenting, and providing care for this patient excluding time spent in the performance of separately billed services. This included personally reviewing all current laboratories and imaging studies, medical reconciliation, outpatient chart review and discussion with specialists. This chart was completed in part utilizing Speech Voice Recognition Software. Grammatical errors, random word insertions, pronoun errors, and incomplete sentences are an occasional consequence of this system due to software limitations, ambient noise, and hardware issues. Any formal questions or concerns about the content, text, or information contained within the body of this dictation should be directly addressed to the provider for clarification. Admission and Anticipated Discharge Date Admission Date: October 09, 2023 Supervising Physician Co-Signing Physician Notes Pt was seen and examined by myself, Desiree Finn MD on the day of service. Care was coordinated with Skyla Adame PA-C. Pt admitted with sepsis in the setting of a complicated UTI. Follows with Urology outpt for a hx of prostate cancer. Denies acute concerns on exam. Follow urine Cx and sensitivities and adjust antibiotics as needed. Will need close Urology followup after discharge. Consider scheduling oral KCl supplements, resuming home HCTZ now pt euvolemic Otherwise as above. I spent a total [id number] coordinating, documenting, and providing care for this patient excluding time spent in the performance of separately billed services Subjective Patient seen and examined at bedside in room N286-1. Patient reports that he had some dysuria this morning; He had received a dose of phenazopyridine and that seemed to help. He reports no fevers or chills overnight. However, he still is experiencing some mild back pain. Review of Systems Review of Systems: At least ten systems reviewed and negative, except as noted in the HPI. Physical Exam Physical Exam: General: WD/WN, vitals as above, NAD, laying down in bed, very pleasant, conversing appropriately. A+Ox3, euthymic affect. HEENT: Normocephalic, atraumatic. Normal inspection, PERRL, conjunctivae normal, anicteric sclerae, oropharynx normal. Respiratory: Normal respiratory effort, lungs clear to auscultation, no wheeze, rales, rhonchi. No accessory muscle use. Cardiovascular: Regular rate, rhythm, no murmur, normal peripheral pulses, no BLE edema. Vessels: No JVD. Abdomen/GI: Normal bowel sounds, soft, nontender, no hepatosplenomegaly. Extremities/Musculoskeletal: No cyanosis or clubbing, extremities motor strength intact, moves all extremities. Neurologic: PERRL, EOMI, accommodation nl, no face palsy, no dysarthria, CN's II-XI not formally tested but appear grossly intact bilaterally. Skin: No rashes, normal color, warm/dry. Results & Data Results & Data Vital Signs (Past 12 Hours) Vital Signs Temp Pulse Pulse Pulse Resp BP Pulse Ox 10/10/23 07:52 36.8 C 80 18 144/77 H 93 10/10/23 07:26 73 10/10/23 02:10 83 10/10/23 02:10 36.7 C 81 16 156/95 H 95 10/10/23 01:30 36.2 C L 81 16 156/95 H 95 10/09/23 23:35 79 10/09/23 23:11 79 19 151/94 H 96 10/09/23 22:00 80 24 135/96 96 10/09/23 21:45 81 24 149/96 H 96 10/09/23 20:45 83 16 139/91 95 O2 Del Method 10/10/23 07:52 Room Air 10/10/23 07:26 10/10/23 02:10 10/10/23 02:10 Room Air 10/10/23 01:30 Room Air 10/09/23 23:35 10/09/23 23:11 Room Air 10/09/23 22:00 Room Air 10/09/23 21:45 Room Air 10/09/23 20:45 Room Air Laboratory Results Short CBC 10/09/23 10/10/23 Range/Units 19:27 06:01 WBC 13.12 H 8.75 (4.8-10.8) K/ul Hgb 14.8 12.9 L (14.0-18.0) g/dl Hct 40.8 L 36.8 L (42.0-52.0) % Plt Count 257 217 (130-400) K/uL BMP 10/09/23 10/10/23 19:27 06:01 Sodium 136 139 Potassium 2.9 L 3.0 L Chloride 98 103 Carbon Dioxide 28 29 BUN 15 10 Creatinine 1.13 1.03 Glucose 123 H 118 H Calcium 10.0 8.5 L Liver Function 10/09/23 Range/Units 19:27 Total Bilirubin 1.0 (0.2-1.0) mg/dl Direct Bilirubin 0.2 (0-0.2) mg/dl AST 27 (13-39) U/L ALT 34 (7-52) U/L Alkaline Phosphatase 90 (34-104) U/L Albumin 4.5 (3.4-5.0) gm/dl Urine 10/09/23 Range/Units 20:44 Urine Color Dark Yellow Urine Appearance Turbid A (Clear) Urine pH 7.0 (4.5-7.5) Ur Specific [place] 1.035 H (1.000-1.030) Urine Protein 2+ H (Negative) Urine Glucose (UA) Negative (Negative) Diagnostic Findings Abdomen/Pelvis CT 10/09/23 19:01 Exam(s): CT ABDOMEN + PELVIS With Contrast IV Amt: 92 ml optiray 320 EXAM: CT Abdomen and Pelvis With Intravenous Contrast CLINICAL HISTORY: Reason for exam: back pain, fever, recent uti. TECHNIQUE: Axial computed tomography images of the abdomen and pelvis with intravenous contrast. CTDI is 26.86 mGy and DLP is 1404.4 mGy-cm. Automated exposure control was utilized for the study. A dose lowering technique was utilized adhering to the principles of ALARA. CONTRAST: Patient received 92 ml optiray 320 of IV contrast COMPARISON: 12/12/2018 FINDINGS: Lung bases: Unremarkable. No mass. No consolidation. ABDOMEN: Liver: Fatty infiltration of the liver. Gallbladder and bile ducts: Unremarkable. No calcified stones. No ductal dilation. Pancreas: Unremarkable. No mass. No ductal dilation. Spleen: Unremarkable. No splenomegaly. Adrenals: Unremarkable. No mass. Kidneys and ureters: 2.9 cm right lower pole renal hypodensity likely representing a cyst. No hydronephrosis. Stomach and bowel: Unremarkable. No obstruction. No mucosal thickening. PELVIS: Appendix: No findings to suggest acute appendicitis. Bladder: Urinary bladder is not distended. There are tiny locules of air seen within the urinary bladder. Reproductive: Unremarkable as visualized. ABDOMEN and PELVIS: Intraperitoneal space: Unremarkable. No free air. No significant fluid collection. Bones/joints: No acute fracture. No dislocation. Soft tissues: Unremarkable. Vasculature: Unremarkable. No abdominal aortic aneurysm. Lymph nodes: Unremarkable. No enlarged lymph nodes. IMPRESSION: Tiny locules of air seen within the urinary bladder. This may be secondary to recent instrumentation, cystitis with a gas-forming organism though considered less likely, cannot be entirely excluded. Clinical correlation is recommended Electronically signed by: Av Fernandez MD 10/09/23 21:56 PM Chest X-Ray 10/09/23 20:21 XR chest 1V portable CLINICAL HISTORY: fever TECHNIQUE: Single frontal radiograph of the chest was obtained. Comparison: Comparison is made to chest radiograph 12/12/2018 FINDINGS: No lines and tubes are seen. The cardiomediastinal silhouette is normal. The lungs are clear. No evidence of pleural effusion or pneumothorax. IMPRESSION: No acute abnormalities and in particular no radiographic evidence of pneumonia. ACT 112: Negative or not required by law. Electronically signed by: Wilmer Skinner M.D. 10/10/2023 6:54 AM Medications Administered Enoxaparin Sodium (Enoxaparin Inj 40 Mg/0.4 Ml Syr) 40 mg SQ QAM RIK Stop: 11/09/23 08:59 Last Admin: 10/10/23 08:02 Dose: 40 mg Documented By: KATHI Piperacillin Sod/Tazobactam (Sod 4.5 gm/ Dextrose) 100 mls @ 25 mls/hr IV Q8H [facility]; Protocol Stop: 10/20/23 05:59 Last Admin: 10/10/23 06:17 Dose: 25 mls/hr Documented By: MITCHEL Losartan Potassium (Losartan Potassium 50 Mg Tab) 50 mg PO QAM RIK Stop: 11/09/23 08:59 Last Admin: 10/10/23 08:02 Dose: 50 mg Documented By: KATHI Phenazopyridine HCl (Phenazopyridine Hcl 100 Mg Tab) 100 mg PO TID PRN PRN Reason: Bladder pain Stop: 11/09/23 06:44 Last Admin: 10/10/23 08:37 Dose: 100 mg Documented By: KATHI Discontinued Medications Acetaminophen (Acetaminophen 325 Mg Tab) 650 mg PO NOW STA Stop: 10/09/23 22:19 Last Admin: 10/09/23 23:10 Dose: 650 mg Documented By: GITAW Sodium Chloride (Nss) 1,000 mls @ 999 mls/hr IV .Q1H1M ONE Stop: 10/09/23 21:22 Last Infusion: 10/09/23 21:50 Dose: Infused Documented By: Admin: 10/09/23 20:42 Dose: 999 mls/hr Documented By: AWILDA Ceftriaxone Sodium (Rocephin) 2,000 mg in 50 mls @ 100 mls/hr IV NOW STA Stop: 10/09/23 21:42 Last Infusion: 10/09/23 22:31 Dose: Infused Documented By: Admin: 10/09/23 21:42 Dose: 100 mls/hr Documented By: AWILDA Sodium Chloride (Nss) 1,000 mls @ 999 mls/hr IV .Q1H1M ONE Stop: 10/09/23 23:06 Last Infusion: 10/10/23 00:11 Dose: Infused Documented By: Admin: 10/09/23 23:10 Dose: 999 mls/hr Documented By: GITAW Piperacillin Sod/Tazobactam Sod (Zosyn) 4.5 gm in 100 mls @ 200 mls/hr IV NOW STA Stop: 10/09/23 23:05 Last Infusion: 10/10/23 00:12 Dose: Infused Documented By: Admin: 10/09/23 23:11 Dose: 200 mls/hr Documented By: ASW Potassium Chloride/Sodium Chloride (Normal Saline W/20 Meq Kcl) 20 meq in 1,000 mls @ 100 mls/hr IV .Q10H STA; Protocol Stop: 10/10/23 08:39 Last Infusion: 10/10/23 10:03 Dose: Infused Documented By: Admin: 10/10/23 00:14 Dose: 100 mls/hr Documented By: AWILDA Ioversol (Optiray 320 100ml) 92 ml IV ONCE ONE Stop: 10/09/23 21:29 Last Admin: 10/09/23 21:29 Dose: 92 ml Documented By: BERTHA Potassium Chloride (Potassium Chloride Pwd 20 Meq Pack) 40 meq PO NOW STA Stop: 10/09/23 20:44 Last Admin: 10/09/23 20:52 Dose: 40 meq Documented By: AWILDA (1) Sepsis Sepsis acute organ dysfunction status: without acute organ dysfunction Sepsis type: sepsis due to unspecified organism Qualified Code(s): A41.9 - Sepsis, unspecified organism
--- NOTE | 2023-10-10 08:52 | Electrocardiogram Report ---
Test Reason : Blood Pressure : / mmHG Vent. Rate : 102 BPM Atrial Rate : 102 BPM P-R Int : 130 ms QRS Dur : 104 ms QT Int : 342 ms P-R-T Axes : 036 045 010 degrees QTc Int : 445 ms Sinus tachycardia Otherwise normal ECG When compared with ECG of 12-DEC-2018 11:27, No significant change was found Confirmed by Rajeev Corbett ([id number]) on 10/10/2023 8:52:19 AM Referred By: REFERRED SELF Confirmed By:Rajeev Corbett
[2023-10-10] MEDS ORDERED: ENOXAPARIN INJ 40 MG/0.4 ML SYR SQ SCH (09:00)
[2023-10-10 13:22] LABS: BUN Creatinine Ratio 8.7 (10-20); Calcium 9.2 mg/dl (8.6-10.3); Creatinine Clr Calc Pharmacy 94.2 ml/min; Est GFR (African American) 90.7 ml/min; Est GFR (Non-African American) 78.2 ml/min; Potassium 3.3 mmol/L (3.5-5.1)
[2023-10-10] MEDS: POTASSIUM CHLORIDE CRTAB 20 MEQ TABCR PO STA (15:50)
[2023-10-11 06:51] LABS: Basophils # (auto) 0.03 K/uL (0.00-0.20); Basophils % (auto) 0.4 %; Eosinophils # (auto) 0.31 K/uL (0.00-0.50); Hematocrit (blood only) 36.6 % (42.0-52.0); Hemoglobin 12.8 g/dl (14.0-18.0); Immature Granulocytes # (auto) 0.05 K/uL (0.01-0.20); Immature Granulocytes % (auto) 0.6 %; Lymphocytes # (auto) 1.29 K/uL (1.20-3.40); Lymphocytes % (auto) 16.7 %; Mean Corpuscular Hemoglobin 31.1 pg (25.0-34.0); Mean Corpuscular Volume 88.8 fL (80.0-100.0); Mean Platelet Volume 8.8 fL (9.4-12.4); Monocytes # (auto) 1.21 K/uL (0.11-0.59); Monocytes % (auto) 15.7 %; Neutrophils # (auto) 4.82 K/uL (1.40-6.50); Neutrophils % (auto) 62.6 %; Platelet Count 237 K/uL (130-400); RDW Coefficient of Variation 13.2 % (11.5-14.5); RDW Standard Deviation 43.6 fL (36.4-46.3); Red Blood Count 4.12 M/uL (4.70-6.10); White Blood Count 7.71 K/ul (4.8-10.8)
[2023-10-11 07:28] LABS: Folate (Folic Acid),Ser orPlas 9.73 ng/ml (>5.38)
[2023-10-11 07:35] LABS: Albumin Globulin Ratio 1.3 (0.9-2); Albumin Level 3.9 gm/dl (3.4-5.0); BUN Creatinine Ratio 9.4 (10-20); Bilirubin,Total 0.6 mg/dl (0.2-1.0); Calcium 9.1 mg/dl (8.6-10.3); Creatinine Clr Calc Pharmacy 84.2 ml/min; Est GFR (African American) 78.6 ml/min; Est GFR (Non-African American) 67.8 ml/min; Ferritin 957.4 ng/ml (8-388); Magnesium 2.1 mg/dl (1.7-2.4); Phosphorus 2.7 mg/dl (2.5-4.9); Total Protein 6.9 gm/dl (6.0-8.3)
[2023-10-11 07:39] LABS: Potassium 3.2 mmol/L (3.5-5.1)
[2023-10-11] MEDS: POTASSIUM CHLORIDE CRTAB 20 MEQ TABCR PO STA (09:33)
--- NOTE | 2023-10-11 13:25 | Discharge Summary ---
Discharge Summary Date of Service October 11, 2023 Principal Dx & Hospital Course #1 = Principal Diagnosis (1) Sepsis: (2) Acute UTI: Nicky Holland is 57y/o M with PMHx significant for history of renal cell carcinoma of left kidney s/p partial left nephrectomy [2019], history of prostate cancer, JOEY on CPAP, history of thyroid nodule, history of nodule in right lung, HTN, history of vitamin D deficiency, history of actinic keratosis, depression, history of tobacco use, history of nonmelanoma skin cancer and other problems listed below who presented to the ED secondary to lower back pain, fever + continued urinary frequency and was found to be septic on admission with an acute UTI. Patient was diagnosed with a UTI on Saturday (10/05) and was subsequently placed on Macrobid without much to any improvement of his symptoms. Acute UTI & Sepsis Complicated UTI Pt met sepsis criteria on admission 2/2 tachycardia, fever, WBC>12K + present source of infection. Pt failed outpatient treatment. Follows with Urology Admitting UA w/ evidence of infection, urine cx grew proteus resistant to ampicillin and Bactrim CT abdomen pelvis noting "Tiny locules of air seen within the urinary bladder. This may be secondary to recent instrumentation, cystitis with a gas-forming organism, though considered less likely, cannot be entirely excluded." Blood Cx x 2 sets NGTD Received dose of IV Rocephin in ED and was transitioned to IV Zosyn with noted improvement of leukocytosis and clinically Discharged with 5 days of po ciprofloxacin 500mg BID and prn pyridium Close Urology followup after discharge- repeat CT imaging of abd/pelvis recommended after completion of treatment to ensure resolution of air locules. Close PCP follow up as well. Hypokalemia Repleted as needed Increased home dose of KCl to 20mEq BID on discharge PCP followup for continued monitoring and dose adjustment as needed Acute Anemia, possibly dilutional Hgb level slightly downtrending today; Hgb 14.8 on admission --> 12.8 Iron levels, b12 and folate in normal limits PCP follow up HTN Chronic, stable; resume home losartan and HCTZ JOEY on CPAP: Continue CPAP H/O Prostate Cancer Pt following w/ [facility]. Under active surveillance with PSA every 6 months. Close Urology followup H/O Renal Cell Carcinoma of L Kidney S/P Partial L Nephrectomy [2019] Does not appear that the pt follows w/ nephrology per chart review. Renal function has remained stable; baseline Cr ~1.0-1.1 per chart review. Continue to avoid nephrotoxic meds when able, closely monitor renal function. PCP follow up H/O R Lung Nodule Per CT scan conducted on 09/20/23: "Stable 11 x 10 mm solid nodule in the right lower lobe, which is unchanged since 2019 and is likely benign." PCP followup Notes For Next Care Provider Please ensure followup with Urology- will need repeat CT abd/pelvis imaging to ensure resolution of noted findings Please monitor Potassium levels and adjust supplementation dose as needed Medication Changes From Visit PRN Pyridium Ciprofloxacin 500mg BID x 5 days Potassium Chloride increased to 20mEq BID Admission HPI Per Admitting Provider History obtained from patient, family, and records. Medical history significant for hypertension, RCCA left status post surgery, prostate cancer, JOEY on CPAP, mood disorder. 3 days ago, patient noted achy low back pain associated with fever and urinary urgency. No hematuria, no chest pain, no SOB. UTI/hematuria symptoms from 3 months ago improved with Bactrim Rx. Outpatient urine CS from 3 months ago no growth. Patient seen at urgent care center few days ago. Patient given Macrodantin Rx. Worsening symptoms despite compliance with prescription. Ceftriaxone administered at the ER. 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 No acute distress Skin: No noted rashes or bruises Psych: Appropriate mood and affect Neuro: No gross deficits HEENT: NC/AT CV: RRR Resp: Breath sounds clear bilaterally, no increased effort of breathing. Abdomen: Soft, nontender Extremities: No edema in lower extremities bilaterally. Updated Medication List Medication Instructions Recorded Confirmed Type cholecalciferol (vitamin D3) 50 2,000 unit PO QAM 12/12/18 10/09/23 History mcg (2,000 unit) tablet (Vitamin D3) hydrochlorothiazide 25 mg tablet 25 mg PO DAILY 12/12/18 10/09/23 History losartan 50 mg tablet 50 mg PO QAM 12/12/18 10/09/23 History spirometers and accessories #1 ea 12/12/18 Rx acetaminophen 325 mg tablet 650 mg PO DIRECTED PRN 10/09/23 10/09/23 History (Tylenol) PAIN/FEVER ciprofloxacin HCl 500 mg tablet 500 mg PO BID #10 tabs 10/11/23 Rx phenazopyridine 100 mg tablet 100 mg PO TID PRN pain #30 tabs 10/11/23 Rx (Pyridium) potassium chloride 20 mEq 20 meq PO BID #60 tabs 10/11/23 Rx tablet,extended release(part/cryst) Hospital Stay Data Consultations 10/09/23 22:06 ED Decision to Admit Stat Diagnostic Imagining Performed 10/09/23 19:01 CT Abd and Pelvis [CT abd pelvis IV con only] Stat Abdomen/Pelvis CT 10/09/23 19:01 Exam(s): CT ABDOMEN + PELVIS With Contrast IV Amt: 92 ml optiray 320 EXAM: CT Abdomen and Pelvis With Intravenous Contrast CLINICAL HISTORY: Reason for exam: back pain, fever, recent uti. TECHNIQUE: Axial computed tomography images of the abdomen and pelvis with intravenous contrast. CTDI is 26.86 mGy and DLP is 1404.4 mGy-cm. Automated exposure control was utilized for the study. A dose lowering technique was utilized adhering to the principles of ALARA. CONTRAST: Patient received 92 ml optiray 320 of IV contrast COMPARISON: 12/12/2018 FINDINGS: Lung bases: Unremarkable. No mass. No consolidation. ABDOMEN: Liver: Fatty infiltration of the liver. Gallbladder and bile ducts: Unremarkable. No calcified stones. No ductal dilation. Pancreas: Unremarkable. No mass. No ductal dilation. Spleen: Unremarkable. No splenomegaly. Adrenals: Unremarkable. No mass. Kidneys and ureters: 2.9 cm right lower pole renal hypodensity likely representing a cyst. No hydronephrosis. Stomach and bowel: Unremarkable. No obstruction. No mucosal thickening. PELVIS: Appendix: No findings to suggest acute appendicitis. Bladder: Urinary bladder is not distended. There are tiny locules of air seen within the urinary bladder. Reproductive: Unremarkable as visualized. ABDOMEN and PELVIS: Intraperitoneal space: Unremarkable. No free air. No significant fluid collection. Bones/joints: No acute fracture. No dislocation. Soft tissues: Unremarkable. Vasculature: Unremarkable. No abdominal aortic aneurysm. Lymph nodes: Unremarkable. No enlarged lymph nodes. IMPRESSION: Tiny locules of air seen within the urinary bladder. This may be secondary to recent instrumentation, cystitis with a gas-forming organism though considered less likely, cannot be entirely excluded. Clinical correlation is recommended Electronically signed by: Av Fernandez MD 10/09/23 21:56 PM Chest X-Ray 10/09/23 20:21 XR chest 1V portable CLINICAL HISTORY: fever TECHNIQUE: Single frontal radiograph of the chest was obtained. Comparison: Comparison is made to chest radiograph 12/12/2018 FINDINGS: No lines and tubes are seen. The cardiomediastinal silhouette is normal. The lungs are clear. No evidence of pleural effusion or pneumothorax. IMPRESSION: No acute abnormalities and in particular no radiographic evidence of pneumonia. ACT 112: Negative or not required by law. Electronically signed by: Wilmer Skinner M.D. 10/10/2023 6:54 AM Discharge Instructions Given to Patient (Per Discharging Provider) Mr. Holland, We are discharging you home after a severe urinary infection. Please continue with the prescribed antibiotic ciprofloxacin for an additional 5 days. STOP TAKING THE MACROBID/NITROFURANTOIN you have at home. Please keep close followup with your urologist after discharge. We are trying to get you a sooner appointment. Take the as needed Pyridium to help with any urinary pain. Your potassium levels were also low while here, so we increased your home potassium supplement dose to twice a day. Please keep close followup with your primary care provider for continued monitoring of your levels. Again, please keep close follow up with urology and your primary care provider after discharge. Please do not hesitate to come back to the emergency room if your symptoms worsen or return. It was a pleasure taking care of you while you were here. Total Time Total Time Spent Total Time Spent (In Minutes): 65
[2023-10-11] MEDS: ACETAMINOPHEN 325 MG TAB PO PRN (14:27)
[2023-10-11] MEDS ORDERED: POTASSIUM CHLORIDE CRTAB 20 MEQ TABCR PO SCH (21:00)
== END 2023-10-11 14:40 | disposition home or self-care (01) | DRG 872 ==
LOC: ED 18:40 → 2N 22:37